=== PATIENT | female | born 1935 | race Caucasian/White ===

== ENCOUNTER 2017-11-27 11:43 | Inpatient (IN) | payer MEDICARE ==
--- NOTE | 2017-11-27 13:42 | CT ---
CT BRAIN WITHOUT CONTRAST: INDICATIONS: Altered mental status with nausea and dizziness since Saturday. The patient reportedly had a UTI and a n elevated white count and was started on Vancomycin. There was concern for supraventricular tachyca rdia at [facility]. The patient has had multiple falls recently. The patient reports fe eling drunk, walking from [id number], and dropping things with her hands. COMPARISON: None. FINDINGS: No definite acute infarct, hemorrhage, or hydrocephalus present. The septum pellucidum and third cony tricle are midline. The visualized skull and extracranial soft tissues are within normal limits. IMPRESSION: No acute intracranial abnormality. POS: [facility]
[2017-11-27] MEDS ORDERED: HYDROcodone/Acetaminophen 10/325 mg Tablet PO PRN (16:33)
[2017-11-27] MEDS ORDERED: Ondansetron ODT 4 MG TAB PO PRN (16:33)
[2017-11-27 16:58] LABS: CKMB 3.3 ng/mL (0-6.6); Troponin I Less than 0.010 ng/mL (< 0.028)
[2017-11-27] MEDS ORDERED: Sodium Chloride 0.9% 10 ML ONE (17:06)
[2017-11-27] MEDS: Ondansetron HCl/PF 4 MG/2 ML Vial IVP PRN (17:09)
[2017-11-27] MEDS: Sodium Chloride 0.9% 1,000 ML IV SCH (17:10)
[2017-11-27] MEDS: Cefepime 2 GM, Syringe 2.5 ML in Sodium Chloride 0.9% 10 ML SLOW IVP SCH (18:51)
[2017-11-27] MEDS ORDERED: Cefepime 2 GM in Sodium Chloride 0.9% 100 ML IVPB SCH (21:00)
[2017-11-27] MEDS: Famotidine/PF 20 mg/2ml Vial SLOW IVP SCH (22:08)
[2017-11-27] MEDS: Acetaminophen 325 MG TAB PO PRN (22:09)
[2017-11-28 00:53] LABS: CKMB 6.6 ng/mL (0-6.6); Troponin I 0.016 ng/mL (< 0.028)
[2017-11-28] MEDS: Sodium Chloride 0.9% 1,000 ML IV SCH ×2 (02:40→15:36)
[2017-11-28 05:46] LABS: ALT (SGPT) 23 U/L (8-55); AST (SGOT) 38 U/L (5-34); Albumin 2.9 g/dL (3.4-4.8); Alkaline Phosphatase 47 U/L (40-150); Anion Gap 18 mmol/L (10-20); BUN (Urea Nitrogen) 39 mg/dL (9.8-20.1); Calc. Creatinine Clearance 27 mL/min (70-130); Carbon Dioxide 17 mmol/L (23-31); Cardiac Risk 5.4 (Less than 4.5); Chloride 102 mmol/L (98-107); Cholesterol 65 mg/dl (< 200 Desired); Estimated GFR-MDRD 29; Globulin 2.8 g/dL (2.4-3.5); Glucose 91 mg/dL (83-110); HDL Cholesterol 12 mg/dL (>60 Neg Risk); LDL Cholesterol, Calculated 28 mg/dL; Magnesium 1.6 mg/dL (1.6-2.6); Potassium 3.8 mmol/L (3.5-5.1); Protein, Total 5.7 g/dL (6.0-8.3); Sodium 133 mmol/L (136-145); Triglycerides 126 mg/dL (Less than 150)
[2017-11-28 05:50] LABS: Band 39 % (5-11); Dohle Bodies SLIGHT; Hemoglobin 11.3 g/dL (12.0-16.0); Lymphocytes 7 % (21-51); MDiff Complete? YES; Mean Corpuscular HGB CONC 33.4 g/dL (32.0-36.0); Mean Corpuscular Hemoglobin 34.6 pg (27.0-31.0); Mean Platelet Volume 7.5 fL (7.4-10.4); Metamyelocyte 1 % (0-0); Monocytes 2 % (0-10); Neutrophil 51 % (42-75); PLT Morphology Comment Appears Decreased; Platelet Count 94 thou/uL (130-400); RBC Distribution Width 12.1 % (11.5-14.5); Red Blood Cell (RBC) Count 3.26 mill/uL (4.20-5.40); Vacuoles SLIGHT; White Blood Cell (WBC) Count 15.1 thou/uL (4.8-10.8)
[2017-11-28] MEDS: Cefepime 2 GM, Syringe 2.5 ML in Sodium Chloride 0.9% 10 ML SLOW IVP SCH (06:25)
[2017-11-28] MEDS ORDERED: Sodium Chloride 0.9% 1,000 ML IV SCH (07:45)
[2017-11-28] MEDS: Acetaminophen 325 MG TAB PO PRN ×2 (08:13→21:35)
[2017-11-28] MEDS: Famotidine/PF 20 mg/2ml Vial SLOW IVP SCH (08:13)
[2017-11-28] MEDS ORDERED: Gaviscon Tablet PO PRN (15:16)
[2017-11-28] MEDS: metroNIDAZOLE 500 MG in Premix Bag 1 BAG IVPB SCH ×2 (15:48→21:30)
[2017-11-28] MEDS: Cefepime 1 GM, Admixture Fee 1 EACH in Sodium Chloride 0.9% 10 ML SLOW IVP SCH (18:25)
--- NOTE | 2017-11-28 21:26 | PDOC.PN ---
- Subjective Encounter Start Date: 11/28/17 Encounter Start Time: 09:10 Pt feeling much better, no F/C until 100.5 around 0800. NO N/v, no CP, no SOB. Still with some dysuria, but improved. no D/C, good BM 11/27. Revisited alter and also diuscussed case on telephone with the son to keep him updated. planning to mobilize her. Orthostatic vitals done at 0430, BP stable, but HR recored was up from 80-90s to 110s, suspect its due to position change, bolus ordered to continue to volume resuscitate. lelia abx well, no itching or rashes [facility], positive for GNR in anaerobic bottle. 10 point ROS performed and neg for all systems except as above - Objective Resuscitation Status: Resuscitation Status FULL:Full Resuscitation MAR Reviewed: Yes Vital Signs & Weight: Vital Signs (12 hours) Temp Pulse Pulse Pulse Resp BP BP 11/28/17 17:00 98.7 F 84 16 11/28/17 11:10 73 75 95/52 L 96/55 L BP BP BP Pulse Ox Pulse Ox 11/28/17 17:00 116/60 136/59 L 127/62 11/28/17 11:10 95 95 Weight Admit Weight 148 lb Weight 158 lb 1 oz I&O: 11/27/17 11/28/17 11/29/17 06:59 06:59 06:59 Intake Total 420 3606 Output Total 500 Balance 420 3106 Result Diagrams: 11/28/17 04:37 11/28/17 04:37 Radiology Reviewed by me: Yes EKG Reviewed by me: Yes Phys Exam - Physical Examination Constitutional: NAD HEENT: PERRLA, moist MMs, sclera anicteric, oral pharynx no lesions Neck: no nodes, no JVD, supple, full ROM Respiratory: no wheezing, no rales, no rhonchi, clear to auscultation bilateral Cardiovascular: RRR, no significant murmur, no rub Gastrointestinal: soft, non-tender, positive bowel sounds distended and tympanitic Musculoskeletal: pulses present, edema present Neurological: non-focal, normal sensation, moves all 4 limbs Lymphatic: no nodes Psychiatric: normal affect, A&O x 3 Skin: no rash, normal turgor, cap refill <2 seconds Dx/Plan (1) Foodborne gastroenteritis Code(s): A05.9 - BACTERIAL FOODBORNE INTOXICATION, UNSPECIFIED Status: Acute Comment: inital symptoms, improved, then UTI symptoms. on Rx. Add Flagyl IV for anaerobic GNR coverage until more information form cultures available (2) UTI (urinary tract infection) Status: Acute Qualifiers: Urinary tract infection type: acute cystitis Hematuria presence: without hematuria Qualified Code(s): N30.00 - Acute cystitis without hematuria (3) Severe sepsis Code(s): A41.9 - SEPSIS, UNSPECIFIED ORGANISM; R65.20 - SEVERE SEPSIS WITHOUT SEPTIC SHOCK Status: Acute (4) Orthostasis Code(s): I95.1 - ORTHOSTATIC HYPOTENSION Status: Acute Comment: BP stable, but HR to 110. repeat in AM (5) Fall on same level as cause of accidental injury Code(s): W18.30XA - FALL ON SAME LEVEL, UNSPECIFIED, INITIAL ENCOUNTER Status : Acute (6) Paroxysmal SVT (supraventricular tachycardia) Code(s): I47.1 - SUPRAVENTRICULAR TACHYCARDIA Status: Acute Comment: likely more of a sinus tach related to dehydration. BBlocker on hold due to hypotension, will restrt likely tomorrow (7) Moderate dehydration Code(s): E86.0 - DEHYDRATION Status: Acute Comment: likely from decreased po intake, N/V/D. Cr up, BUN:Cr > 20:1. 2L additional bolus ordered this AM, continue to watch (8) YOLANDE (acute kidney injury) Code(s): N17.9 - ACUTE KIDNEY FAILURE, UNSPECIFIED Status: Acute Comment: Cr 1.79-1.68. conitnue to hydrate - Plan * .
[2017-11-28] MEDS: Diabetic Tussin 200 MG/10 ML UDCUP PO PRN (22:26)
[2017-11-29] MEDS: Sodium Chloride 0.9% 1,000 ML IV SCH (03:16)
[2017-11-29] MEDS: metroNIDAZOLE 500 MG in Premix Bag 1 BAG IVPB SCH ×3 (03:17→15:51)
[2017-11-29 05:35] LABS: Anion Gap 13 mmol/L (10-20); BUN (Urea Nitrogen) 37 mg/dL (9.8-20.1); Calc. Creatinine Clearance 32 mL/min (70-130); Calcium 7.7 mg/dL (7.8-10.44); Carbon Dioxide 19 mmol/L (23-31); Chloride 105 mmol/L (98-107); Estimated GFR-MDRD 33; Glucose 95 mg/dL (83-110); Magnesium 1.6 mg/dL (1.6-2.6); Potassium 3.3 mmol/L (3.5-5.1); Sodium 134 mmol/L (136-145)
[2017-11-29] MEDS: Cefepime 1 GM, Admixture Fee 1 EACH in Sodium Chloride 0.9% 10 ML SLOW IVP SCH ×2 (06:12→17:54)
[2017-11-29 06:16] LABS: Band 42 % (5-11); Hemoglobin 10.1 g/dL (12.0-16.0); Lymphocytes 7 % (21-51); MDiff Complete? YES; Macrocytosis SLIGHT = 6-15 cells (100X) (0-5/hpf); Mean Corpuscular HGB CONC 33.3 g/dL (32.0-36.0); Mean Corpuscular Hemoglobin 34.3 pg (27.0-31.0); Mean Platelet Volume 7.2 fL (7.4-10.4); Monocytes 3 % (0-10); Neutrophil 48 % (42-75); PLT Morphology Comment Appears Decreased; Platelet Count 103 thou/uL (130-400); RBC Distribution Width 12.3 % (11.5-14.5); Red Blood Cell (RBC) Count 2.93 mill/uL (4.20-5.40)
[2017-11-29] MEDS: Famotidine/PF 20 mg/2ml Vial SLOW IVP SCH (09:02)
[2017-11-29] MEDS: Acetaminophen 325 MG TAB PO PRN (09:07)
[2017-11-29] MEDS: Diabetic Tussin 200 MG/10 ML UDCUP PO PRN ×2 (09:16→21:17)
--- NOTE | 2017-11-29 16:50 | ULT ---
ULTRASOUND RENAL BILATERAL STANDARD: HISTORY: Acute kidney injury. Urinary tract infection. COMPARISON: None. FINDINGS: The right kidney measures 10.9 x 5 x 5.6 cm and the left kidney measures 13 x 7.1 x 6.5 cm. A small right renal cyst superior pole is present measuring up to 1.1 cm. Prevoid urinary bladder volume is 229 mL. Both ureteral jets were visualized. The patient is unable to get up and void. IMPRESSION: No evidence of obstructive uropathy. POS: [facility]
--- NOTE | 2017-11-29 20:31 | PDOC.PN ---
- Subjective Encounter Start Date: 11/29/17 Encounter Start Time: 11:00 Pt continues to feel better. tolerating IV antibiotics, tmax 100.2 last evening. no n/V/D/c, no CP or SOB. coughed all night, got cough medicine ordered and then cough stopped, never actually took anything for it,. Pt walking about 200' in the hallway with a walker. Case discussed with pt and her son, anticipating D/C in 1-2 days. Pt is complaining of pain in her left abdomen, radiating down to her left inguinal region. Cr slowly improving, HR down despite 10 sec episode of PSVT last evening \10 point ROS performed and neg for all systems except as per HPI - Objective Resuscitation Status: Resuscitation Status FULL:Full Resuscitation MAR Reviewed: Yes Vital Signs & Weight: Vital Signs (12 hours) Temp Pulse Pulse Pulse Resp BP BP 11/29/17 16:00 97.8 F 77 20 11/29/17 10:25 81 72 141/62 H 154/65 H 11/29/17 08:30 97.9 F 77 20 BP 11/29/17 16:00 153/69 H 11/29/17 10:25 11/29/17 08:30 153/70 H Weight Admit Weight 148 lb Weight 158 lb I&O: 11/28/17 11/29/17 11/30/17 06:59 06:59 06:59 Intake Total 420 5056 Output Total 800 Balance 420 4256 Result Diagrams: 11/29/17 04:36 11/29/17 04:36 Radiology Reviewed by me: Yes EKG Reviewed by me: Yes Phys Exam - Physical Examination Constitutional: NAD HEENT: PERRLA, moist MMs, sclera anicteric, oral pharynx no lesions Neck: no nodes, no JVD, supple, full ROM Respiratory: no wheezing, no rales, no rhonchi, clear to auscultation bilateral Cardiovascular: RRR, no significant murmur, no rub Gastrointestinal: soft, non-tender, no distention, positive bowel sounds Musculoskeletal: no edema, pulses present Neurological: non-focal, normal sensation, moves all 4 limbs Lymphatic: no nodes Psychiatric: normal affect, A&O x 3 Skin: no rash, normal turgor, cap refill <2 seconds Dx/Plan (1) Foodborne gastroenteritis Code(s): A05.9 - BACTERIAL FOODBORNE INTOXICATION, UNSPECIFIED Status: Acute Comment: inital symptoms, improved, then UTI symptoms. on Rx. Cx is identified as E coli, sdensitivites pending, will stop flagyl (2) UTI (urinary tract infection) Status: Acute Qualifiers: Urinary tract infection type: acute cystitis Hematuria presence: without hematuria Qualified Code(s): N30.00 - Acute cystitis without hematuria (3) Severe sepsis Code(s): A41.9 - SEPSIS, UNSPECIFIED ORGANISM; R65.20 - SEVERE SEPSIS WITHOUT SEPTIC SHOCK Status: Resolved (4) Orthostasis Code(s): I95.1 - ORTHOSTATIC HYPOTENSION Status: Acute Comment: BP stable, HR much improved. repeat in AM (5) Fall on same level as cause of accidental injury Code(s): W18.30XA - FALL ON SAME LEVEL, UNSPECIFIED, INITIAL ENCOUNTER Status : Resolved (6) Paroxysmal SVT (supraventricular tachycardia) Code(s): I47.1 - SUPRAVENTRICULAR TACHYCARDIA Status: Acute Comment: likely more of a sinus tach related to dehydration. BBlocker on hold due to hypotension, will restrt today (7) Moderate dehydration Code(s): E86.0 - DEHYDRATION Status: Acute Comment: likely from decreased po intake, N/V/D. Cr up, BUN:Cr > 20:1. 2L additional bolus ordered 11/28, continue to watch (8) YOLANDE (acute kidney injury) Code(s): N17.9 - ACUTE KIDNEY FAILURE, UNSPECIFIED Status: Acute Comment: Cr 1.79-1.68 to 1.5. check renal U/S - no evidence of stone. conitnue to hydrate - Plan cont current plan of care, plan discussed w/ family, continue antibiotics, PT/OT , respiratory therapy, out of bed/ambulate * .
[2017-11-29] MEDS ORDERED: Diltiazem HCl 125 MG, Admixture Fee 1 EACH in Sodium Chloride 0.9% 100 ML IVPB SCH (22:00)
[2017-11-29] MEDS ORDERED: Carvedilol 25 MG TAB PO SCH (23:45)
[2017-11-30] MEDS: Sodium Chloride 0.9% 1,000 ML IV SCH ×4 (01:04→23:07)
[2017-11-30] MEDS: Diabetic Tussin 200 MG/10 ML UDCUP PO PRN ×3 (04:11→20:46)
[2017-11-30] MEDS: Cefepime 1 GM, Admixture Fee 1 EACH in Sodium Chloride 0.9% 10 ML SLOW IVP SCH (05:40)
[2017-11-30 05:55] LABS: Anion Gap 13 mmol/L (10-20); BUN (Urea Nitrogen) 29 mg/dL (9.8-20.1); Calc. Creatinine Clearance 43 mL/min (70-130); Calcium 7.5 mg/dL (7.8-10.44); Carbon Dioxide 18 mmol/L (23-31); Chloride 106 mmol/L (98-107); Estimated GFR-MDRD 46; Glucose 99 mg/dL (83-110); Magnesium 1.7 mg/dL (1.6-2.6); Potassium 3.3 mmol/L (3.5-5.1); Sodium 134 mmol/L (136-145)
[2017-11-30 05:58] LABS: Band 13 % (5-11); Eosinophils 1 % (0-10); Hemoglobin 9.7 g/dL (12.0-16.0); Lymphocytes 1 % (21-51); MDiff Complete? YES; Mean Corpuscular HGB CONC 33.7 g/dL (32.0-36.0); Mean Corpuscular Hemoglobin 34.5 pg (27.0-31.0); Monocytes 14 % (0-10); Myelocyte 1 % (0-0); Neutrophil 70 % (42-75); Platelet Count 116 thou/uL (130-400); RBC Distribution Width 12.4 % (11.5-14.5); Red Blood Cell (RBC) Count 2.81 mill/uL (4.20-5.40); White Blood Cell (WBC) Count 10.5 thou/uL (4.8-10.8)
[2017-11-30] MEDS: Carvedilol 25 MG TAB PO SCH ×2 (10:22→20:45)
[2017-11-30] MEDS: Famotidine/PF 20 mg/2ml Vial SLOW IVP SCH (10:23)
--- NOTE | 2017-11-30 16:46 | RAD ---
ABDOMEN ONE VIEW 11/30/17 HISTORY: Anorexia, abdominal pain. COMPARISON: None. FINDINGS: No dilated air filled loops of large or small bowel. Posterior spinal fusion hardware L3-L5 is presen t without hardware complication. Evaluation for free air is limited without upright exam. No abnormal calcifications projecting over the renal shadows. IMPRESSION: No acute abnormality. POS: [facility]
[2017-11-30] MEDS: Benzonatate 100 MG CAP PO PRN (17:05)
[2017-11-30] MEDS: Fluticasone Propionate Nasal Spray 16 gm Bottle NASAL SCH (17:06)
--- NOTE | 2017-11-30 19:00 | CON ---
DATE OF CONSULTATION: 11/30/2017 HISTORY: The patient is an 82-year-old woman who was admitted with weakness and dizziness. The patient was diagnosed with a urinary tract infection. She has been in the hospital and developed a rapid heart rate on telemetry monitoring. The patient denied having any palpitations. The patient has no known history of coronary artery disease. The patient denies having any chest discomfort,dyspnea or weakness. PAST MEDICAL HISTORY: 1. Hypertension. 2. Hypercholesterolemia. 3. History of allergies. PAST SURGICAL HISTORY: Knee surgery and back surgery. SOCIAL HISTORY: Nonsmoker. FAMILY HISTORY: No strong family history of heart disease. MEDICATIONS ON ADMISSION: Aspirin 81 daily, Lipitor 40 at bedtime, carvedilol 12.5 b.i.d., hydrochlorothiazide 50 daily, and K-Dur 10 mEq 2 tablets daily. ALLERGIES: CODEINE and TRAMADOL. PHYSICAL EXAMINATION: GENERAL: This is an ill-appearing woman who is coughing with a blood pressure of 112/56. NECK: Showed no jugular distention. LUNGS: Coarse breath sounds bilateral. HEART: Regular rate and rhythm, normal S1, S2. ABDOMEN: Distended. EXTREMITIES: Showed trace edema. LABORATORY: Sodium was 134, potassium 3.3, chloride 106, bicarbonate 18, BUN 29 , creatinine is 1.1. Troponin was 0.016. Her white blood cell count is 10.5, hemoglobin 9.7, hematocrit 28.8, her platelets are 116. Her EKG revealed normal sinus rhythm with a nonspecific ST abnormality, Q-waves suggestive of possible previous septal infarct. Telemetry monitoring SVT, rate of approximately 180. IMPRESSION: 1. Supraventricular tachycardia. 2. Hypertension. 3. Urinary tract infection. 4. Persistent coughing. 5. Macrocytic anemia. This patient presented with a urinary tract infection. Her hospital monitor revealed SVT. The patient's Coreg had been held when she had low blood pressure. We will follow this patient with you through her hospitalization. MELIZA
[2017-11-30] MEDS: Cefepime 2 GM, Syringe 2.5 ML in Sodium Chloride 0.9% 10 ML SLOW IVP SCH ×2 (20:02→20:03)
[2017-11-30] MEDS: HYDROcodone/Acetaminophen 5/325 mg Tablet PO PRN (20:53)
--- NOTE | 2017-11-30 20:55 | PDOC.PN ---
- Subjective Encounter Start Date: 11/30/17 Encounter Start Time: 11:50 - Objective Resuscitation Status: Resuscitation Status FULL:Full Resuscitation MAR Reviewed: Yes Vital Signs & Weight: Vital Signs (12 hours) Temp Pulse Resp BP BP Pulse Ox 11/30/17 16:00 97.1 F L 68 18 125/68 11/30/17 12:00 97.9 F 66 16 142/60 H 96 Weight Admit Weight 148 lb Weight 158 lb 8 oz I&O: 11/29/17 11/30/17 12/01/17 06:59 06:59 06:59 Intake Total 5056 2124 1898 Output Total 800 300 650 Balance 4256 1824 1248 Result Diagrams: 12/01/17 04:46 12/01/17 04:46 Radiology Reviewed by me: Yes EKG Reviewed by me: Yes Phys Exam - Physical Examination Constitutional: NAD HEENT: PERRLA, moist MMs, sclera anicteric, oral pharynx no lesions Neck: no nodes, no JVD, supple, full ROM Respiratory: no wheezing, no rales, no rhonchi, clear to auscultation bilateral Cardiovascular: RRR, no significant murmur, no rub Gastrointestinal: soft, non-tender, no distention, positive bowel sounds Musculoskeletal: no edema, pulses present Neurological: non-focal, normal sensation, moves all 4 limbs Lymphatic: no nodes Psychiatric: normal affect, A&O x 3 Skin: no rash, normal turgor, cap refill <2 seconds Dx/Plan (1) Foodborne gastroenteritis Code(s): A05.9 - BACTERIAL FOODBORNE INTOXICATION, UNSPECIFIED Status: Acute Comment: inital symptoms, improved, then UTI symptoms. on Rx. Cx is identified as E coli, sensitivites pending, will stop flagyl. to po levoflox to complete 14d. (2) UTI (urinary tract infection) Status: Acute Qualifiers: Urinary tract infection type: acute cystitis Hematuria presence: without hematuria Qualified Code(s): N30.00 - Acute cystitis without hematuria Comment: UA consistnet, + symptoms, [facility]x [facility]. (3) Severe sepsis Code(s): A41.9 - SEPSIS, UNSPECIFIED ORGANISM; R65.20 - SEVERE SEPSIS WITHOUT SEPTIC SHOCK Status: Resolved (4) Orthostasis Code(s): I95.1 - ORTHOSTATIC HYPOTENSION Status: Resolved Comment: BP stable , HR much improved. repeat in AM (5) Fall on same level as cause of accidental injury Code(s): W18.30XA - FALL ON SAME LEVEL, UNSPECIFIED, INITIAL ENCOUNTER Status : Resolved (6) Paroxysmal SVT (supraventricular tachycardia) Code(s): I47.1 - SUPRAVENTRICULAR TACHYCARDIA Status: Acute Comment: ordered Coreg to restart, but apparently defaulted to restart this morning. Pt developed sustaind SVT overnight, given STAT coreg then. Cardizem gtt ordered. HR in 70s, Coreg on board. will stop cardizem and watch. Will ask cardiology to comment (7) Moderate dehydration Code(s): E86.0 - DEHYDRATION Status: Acute Comment: Cr down to 1.13. watch (8) YOLANDE (acute kidney injury) Code(s): N17.9 - ACUTE KIDNEY FAILURE, UNSPECIFIED Status: Acute Comment: Cr 1.79-1.68 to 1.5 to 1.13. renal U/S - no evidence of stone. conitnue to hydrate - Plan cont current plan of care, plan discussed w/ family, continue antibiotics, PT/OT , out of bed/ambulate * .
[2017-12-01] MEDS: Diabetic Tussin 200 MG/10 ML UDCUP PO PRN ×2 (03:05→22:12)
[2017-12-01] MEDS: HYDROcodone/Acetaminophen 5/325 mg Tablet PO PRN (03:12)
[2017-12-01 05:32] LABS: Anion Gap 12 mmol/L (10-20); BUN (Urea Nitrogen) 27 mg/dL (9.8-20.1); Calc. Creatinine Clearance 51 mL/min (70-130); Calcium 7.6 mg/dL (7.8-10.44); Carbon Dioxide 18 mmol/L (23-31); Chloride 107 mmol/L (98-107); Estimated GFR-MDRD 56; Glucose 112 mg/dL (83-110); Magnesium 1.4 mg/dL (1.6-2.6); Potassium 3.1 mmol/L (3.5-5.1); Sodium 134 mmol/L (136-145)
[2017-12-01] MEDS ORDERED: Cefepime 1 GM, Admixture Fee 1 EACH in Sodium Chloride 0.9% 10 ML SLOW IVP SCH (06:00)
[2017-12-01 06:01] LABS: Band 24 % (5-11); Hemoglobin 9.3 g/dL (12.0-16.0); Lymphocytes 6 % (21-51); MDiff Complete? YES; Mean Corpuscular HGB CONC 32.3 g/dL (32.0-36.0); Mean Corpuscular Hemoglobin 33.1 pg (27.0-31.0); Monocytes 11 % (0-10); Neutrophil 59 % (42-75); Platelet Count 121 thou/uL (130-400); RBC Distribution Width 12.6 % (11.5-14.5); White Blood Cell (WBC) Count 13.5 thou/uL (4.8-10.8)
[2017-12-01] MEDS ORDERED: Magnesium 2 GM/NS 0.9% 100 ML 2 GM in Premix Bag 1 BAG IVPB SCH (08:45)
[2017-12-01] MEDS: Famotidine/PF 20 mg/2ml Vial SLOW IVP SCH (08:46)
[2017-12-01] MEDS: Sodium Chloride 0.9% 1,000 ML IV SCH ×4 (08:55→21:36)
[2017-12-01] MEDS ORDERED: Potassium Chloride 20 MEQ TAB PO SCH (09:00)
[2017-12-01] MEDS: Fluticasone Propionate Nasal Spray 16 gm Bottle NASAL SCH (11:47)
[2017-12-01] MEDS: Aspirin 81 mg Enteric Coated Tablet PO SCH (11:47)
[2017-12-01] MEDS: Carvedilol 25 MG TAB PO SCH ×2 (11:47→21:25)
[2017-12-01] MEDS: Potassium Chloride 20 MEQ TAB PO SCH ×3 (12:17→21:32)
--- NOTE | 2017-12-01 12:27 | PDOC.PN ---
- Subjective Encounter Start Date: 12/01/17 Encounter Start Time: 10:25 Pt had cough, took robitussing and tessalon, improved. pain overnight to her back, was given hydrocodone which she has told me she doesnt take ever because all opioids make her nauseated, then proceeded to get nauseated and thre up once this morning. no f/c, no D/C. refuse dmeds earlier, now getting to the point where she feels she can tolerate them. Labs reviewed Son brought in a list of abx pt has been on and off the last few YEARS, but pt never finished. most recent was doxy for UTI. no other events. feels weak, tired today - Objective Resuscitation Status: Resuscitation Status FULL:Full Resuscitation Vital Signs & Weight: Vital Signs (12 hours) Temp Pulse Resp BP BP Pulse Ox 12/01/17 08:08 97.5 F L 70 20 168/70 H 94 L 12/01/17 04:00 97.8 F 79 22 H 147/66 H 93 L Weight Admit Weight 148 lb Weight 158 lb 1 oz I&O: 11/30/17 12/01/17 12/02/17 06:59 06:59 06:59 Intake Total 2124 3598 Output Total 300 750 Balance 1824 2848 Result Diagrams: 12/01/17 04:46 12/01/17 04:46 Radiology Reviewed by me: Yes EKG Reviewed by me: Yes Phys Exam - Physical Examination Constitutional: NAD acutely ill-appearing HEENT: PERRLA, moist MMs, sclera anicteric, oral pharynx no lesions Neck: no nodes, no JVD, supple, full ROM Respiratory: no wheezing, no rales, no rhonchi, clear to auscultation bilateral Cardiovascular: RRR, no significant murmur, no rub Gastrointestinal: soft, non-tender, positive bowel sounds slightly distended, no R/R/G Musculoskeletal: pulses present, edema present Neurological: non-focal, normal sensation, moves all 4 limbs Lymphatic: no nodes Psychiatric: normal affect, A&O x 3 Skin: no rash, normal turgor, cap refill <2 seconds Dx/Plan (1) Foodborne gastroenteritis Code(s): A05.9 - BACTERIAL FOODBORNE INTOXICATION, UNSPECIFIED Status: Acute Comment: inital symptoms, improved, then UTI symptoms. on Rx. Cx is identified as E coli, sensitivites reviewed. both BCx positive, no UCx sent (2) UTI (urinary tract infection) Status: Acute Qualifiers: Urinary tract infection type: acute cystitis Hematuria presence: without hematuria Qualified Code(s): N30.00 - Acute cystitis without hematuria Comment: UA consistnet, + symptoms, [facility]. to [facility] once daily now (3) Severe sepsis Code(s): A41.9 - SEPSIS, UNSPECIFIED ORGANISM; R65.20 - SEVERE SEPSIS WITHOUT SEPTIC SHOCK Status: Resolved (4) Orthostasis Code(s): I95.1 - ORTHOSTATIC HYPOTENSION Status: Resolved Comment: BP stable , HR much improved. repeat in AM (5) Fall on same level as cause of accidental injury Code(s): W18.30XA - FALL ON SAME LEVEL, UNSPECIFIED, INITIAL ENCOUNTER Status : Resolved (6) Paroxysmal SVT (supraventricular tachycardia) Code(s): I47.1 - SUPRAVENTRICULAR TACHYCARDIA Status: Acute Comment: ordered Coreg to restart, but apparently defaulted to restart this morning. Pt developed sustaind SVT overnight, given STAT coreg then. Cardizem gtt ordered. HR in 70s, Coreg on board. will stop cardizem and watch. HR remained in 70s. no PSVT episodes, cardiology content with current management. Echo reviwed (7) Moderate dehydration Code(s): E86.0 - DEHYDRATION Status: Acute Comment: Cr down to 0.95. watch (8) YOLANDE (acute kidney injury) Code(s): N17.9 - ACUTE KIDNEY FAILURE, UNSPECIFIED Status: Acute Comment: Cr 1.79-1.68 to 1.5 to 1.13 to 0.95. renal U/S - no evidence of stone. continue to hydrate until nausea resolved - Plan cont current plan of care, plan discussed w/ family, continue antibiotics, PT/OT , out of bed/ambulate * .
[2017-12-01] MEDS: hydrALAZINE 20 MG/ML VIAL SLOW IVP PRN (13:51)
[2017-12-01] MEDS: Benzonatate 100 MG CAP PO PRN (21:25)
[2017-12-02] MEDS: hydrALAZINE 20 MG/ML VIAL SLOW IVP PRN ×2 (00:31→21:45)
[2017-12-02] MEDS: Diabetic Tussin 200 MG/10 ML UDCUP PO PRN ×2 (02:19→05:43)
[2017-12-02 05:22] LABS: Anion Gap 12 mmol/L (10-20); BUN (Urea Nitrogen) 25 mg/dL (9.8-20.1); Calc. Creatinine Clearance 57 mL/min (70-130); Calcium 7.9 mg/dL (7.8-10.44); Carbon Dioxide 18 mmol/L (23-31); Chloride 108 mmol/L (98-107); Estimated GFR-MDRD 64; Glucose 117 mg/dL (83-110); Magnesium 1.8 mg/dL (1.6-2.6); Potassium 4.3 mmol/L (3.5-5.1); Sodium 134 mmol/L (136-145)
[2017-12-02 05:39] LABS: Band 3 % (5-11); Eosinophils 2 % (0-10); Hemoglobin 9.9 g/dL (12.0-16.0); Lymphocytes 7 % (21-51); MDiff Complete? YES; Mean Corpuscular HGB CONC 33.5 g/dL (32.0-36.0); Mean Corpuscular Hemoglobin 34.9 pg (27.0-31.0); Mean Platelet Volume 7.2 fL (7.4-10.4); Monocytes 10 % (0-10); Neutrophil 78 % (42-75); Platelet Count 153 thou/uL (130-400); RBC Distribution Width 12.8 % (11.5-14.5); Red Blood Cell (RBC) Count 2.82 mill/uL (4.20-5.40); White Blood Cell (WBC) Count 14.7 thou/uL (4.8-10.8)
[2017-12-02] MEDS ORDERED: Cepastat Lozenges 1 LOZ PO PRN (05:44)
[2017-12-02] MEDS ORDERED: cefTRIAXone\\ROCEPHIN 2 GM in Sodium Chloride 0.9% 100 ML IVPB SCH (06:00)
--- NOTE | 2017-12-02 08:36 | HP ---
DATE OF ADMISSION: 11/27/2017 TIME OF SERVICE: 1300 CHIEF COMPLAINT: Dizziness. HISTORY OF PRESENT ILLNESS: Ms. Giles is an 82-year-old white female with a history of hypertension , hyperlipidemia, osteoarthritis who presents in transfer to our ER from the [facility] for se psis and UTI. While she was there, she had an elevated heart rate in the 140s and a concern for SVT and has had multiple falls in the last several days. The last fall was the night before presenting, she started feeling like she was off balance and walking side to side and dropping things. She fell, hitting her head on a bookcase, but denies any loss of consciousness. Workup in the ER revealed an elevated white count 22.3, creatinine 1.79 which is above her baseline a nd she was subsequently transferred to our emergency department. On arrival here, blood pressure was borderline normal. We were called for admission. The patient denies any fevers or chills at present. She does feel odd, like she is off balance. She is having burning when she urinates. No nausea, vomiting, diarrhea, or constipation. At this time, she got antibiotics intravenously. On arrival here, she got a CT scan of the abdomen t hat was reportedly negative. Her CT scan of the brain was negative. The patient states that several days prior to admission, she developed a gastroenteritis-type diarrhe a for 3 days after eating taco salad with beans were cold. Immediately after which she started havin g dysuria and the disequilibrium started. PAST MEDICAL HISTORY: 1. Hypertension. 2. Hyperlipidemia. 3. Osteoarthritis. PAST SURGICAL HISTORY: 1. Appendectomy. 2. Hysterectomy. 3. Bilateral total knee replacements. 4. Ankle repair. 5. Right shoulder surgery and the lumbar fusion. HOME MEDICATIONS: 1. Atorvastatin 20/ezetimibe 10 mg p.o. at bedtime. 3. Premarin 1.25 mg p.o. daily. 4. KCl 20 mEq at bedtime. 5. Coreg 12.5 mg p.o. b.i.d. 6. HCTZ 50 mg p.o. q.a.m. 7. Aspirin 81 mg at bedtime. 8. Bactrim-DS q.p.m. for recurrent groin infection. 9. Centrum Silver daily. 10. Probiotic Citrucel daily. 11. B complex daily. 12. Magnesium citrate 400 mg p.o. daily. 13. Lutein 6 mg p.o. q.p.m. ALLERGIES: CODEINE AND TRAMADOL. Pretty much any narcotic causes nausea. FAMILY HISTORY: Negative for history of clotting or bleeding disorder, no immune dysfunction. SOCIAL HISTORY: Negative for habits x3. REVIEW OF SYSTEMS: A 10-point review of systems was performed, negative for all systems except as pe r HPI. PHYSICAL EXAMINATION: VITAL SIGNS: Temperature 98.3, pulse 81, blood pressure 106/46, respiratory rate 19, satting 97% on room air. GENERAL: She is awake. She is alert. She is in no acute distress. HEENT: Normocephalic, atraumatic. Pupils equal, round, react to light bilaterally. ENT: Mucous membranes moist. She has no visible lesion or thrush. NECK: Supple, without lymphadenopathy, JVD, thyromegaly. RESPIRATORY: Clear to auscultation bilaterally. She has no wheezing, no rales, no rhonchi. CARDIOVASCULAR: She is regular. She is slightly tachycardic, but while listening to it, slowed down to a normal rate. She does have a 2/6 holosystolic murmur heard at the apex. ABDOMEN: Soft. It is diffusely tender. There is no rebound, rigidity or guarding. She has hyperac tive bowel sounds present in all 4 quadrants. EXTREMITIES: No signs of clubbing with trace edema in the bilateral lower extremities. SKIN: Warm, moist, and well perfused. She has no rashes or lesions. NEUROLOGIC: Cranial nerves II-XII grossly intact with no focal deficits. MUSCULOSKELETAL: Normal to inspection. Joints appear normal. There is no inflammation. No palpabl e effusions. LABORATORY EVALUATION: Sodium 130, potassium 3.3, chloride 93, bicarbonate 24, BUN 33, creatinine 1. 79. Her baseline was 0.71. Glucose was normal at 151 and calcium of 8.2. Her albumin was 2.7. The rest of her liver function was within normal limits. CBC showed a white count of 22.3, 79% granuloc ytes, 8% bands, hemoglobin 11.0, hematocrit 32.8, and platelet count is 127,000. RADIOGRAPHIC STUDIES: CT scan of the brain is negative for acute intracranial abnormality. Chest x- ray showed no acute cardiopulmonary disease. Urinalysis 1+, leuk esterase, 2050 white cells, 3+ bacteria, positive nitrite. CK was 185, troponin I 0.03. ASSESSMENT AND PLAN: 1. Urinary tract infection. 2. Severe sepsis with bacterial infection, elevated white count with left shift, she had a low blood pressure and evidence of end organ damage with acute kidney injury. 3. Acute kidney injury. Creatinine is up above two and half times normal. I think she is dry. We will continue IV hydration. 4. Recent febrile illness. She will be covered with cefepime. 5. Hypertension: Hold blood pressure medicines, currently hypotensive. 6. Paroxysmal supraventricular tachycardia. Patient normally on a beta meg, but has not been on it for several days because of her food borne illness. Watch closely. I think if she gets rehydrat ed, her heart rate will come back down. 7. History of osteoarthritis. We will place the patient on IV antibiotics and IV fluids. Watch overnight. Repeat morning labs.
[2017-12-02] MEDS: Famotidine/PF 20 mg/2ml Vial SLOW IVP SCH (08:51)
[2017-12-02] MEDS: Ondansetron HCl/PF 4 MG/2 ML Vial IVP PRN (08:51)
[2017-12-02] MEDS: Carvedilol 25 MG TAB PO SCH ×2 (08:52→21:44)
[2017-12-02] MEDS: Aspirin 81 mg Enteric Coated Tablet PO SCH (08:52)
[2017-12-02] MEDS: Fluticasone Propionate Nasal Spray 16 gm Bottle NASAL SCH (08:52)
[2017-12-02] MEDS: Naproxen 500 MG TAB PO PRN ×2 (08:53→21:52)
--- NOTE | 2017-12-02 10:16 | PDOC.PN ---
- Subjective Encounter Start Date: 12/02/17 Encounter Start Time: 11:15 Subjective: Patient feeling a bit better today, except coughing all night and -: not able to sleep. A bit better with warm tea this AM. Trouble ambulating -: far. Thinks she may need rehab before home alone. - Objective Resuscitation Status: Resuscitation Status FULL:Full Resuscitation MAR Reviewed: Yes Vital Signs & Weight: Vital Signs (12 hours) Temp Pulse Resp BP BP Pulse Ox 12/02/17 08:00 80 20 188/81 H 98 12/02/17 06:00 166/78 H 12/02/17 04:00 98.3 F 89 22 H 92 L 12/02/17 00:31 88 189/84 H 12/02/17 00:00 181/76 H Weight Admit Weight 148 lb Weight 173 lb 14.4 oz I&O: 12/01/17 12/02/17 12/03/17 06:59 06:59 06:59 Intake Total 3598 2736 Output Total 750 800 Balance 2848 1936 Result Diagrams: 12/02/17 04:31 12/02/17 04:31 Phys Exam - Physical Examination Constitutional: NAD HEENT: moist MMs Respiratory: no wheezing, no rales, no rhonchi Cardiovascular: RRR, no significant murmur Gastrointestinal: soft, positive bowel sounds Musculoskeletal: edema present trace lower extremities Neurological: moves all 4 limbs Psychiatric: normal affect, A&O x 3 Dx/Plan (1) Severe sepsis Code(s): A41.9 - SEPSIS, UNSPECIFIED ORGANISM; R65.20 - SEVERE SEPSIS WITHOUT SEPTIC SHOCK Status: Resolved (2) YOLANDE (acute kidney injury) Code(s): N17.9 - ACUTE KIDNEY FAILURE, UNSPECIFIED Status: Resolved (3) UTI (urinary tract infection) Status: Acute Qualifiers: Urinary tract infection type: acute cystitis Hematuria presence: without hematuria Qualified Code(s): N30.00 - Acute cystitis without hematuria Comment: UA consistnet, + symptoms, no UCx [facility] at [facility] prior to transfer. to rocephin once daily now (4) Bacteremia Code(s): R78.81 - BACTEREMIA Status: Acute Comment: E. coli 2/2 cultures at [facility], on Rocephin, improving, likely urinary vs. GI source (5) Foodborne gastroenteritis Code(s): A05.9 - BACTERIAL FOODBORNE INTOXICATION, UNSPECIFIED Status: Acute Comment: inital symptoms, improved, then UTI symptoms. on Rx. Cx is identified as E coli, sensitivites reviewed. both BCx positive, no UCx sent (6) Moderate dehydration Code(s): E86.0 - DEHYDRATION Status: Resolved (7) Paroxysmal SVT (supraventricular tachycardia) Code(s): I47.1 - SUPRAVENTRICULAR TACHYCARDIA Status: Resolved Comment: ordered Coreg to restart, but apparently defaulted to restart this morning. Pt developed sustaind SVT overnight, given STAT coreg then. Cardizem gtt ordered. HR in 70s, Coreg on board. will stop cardizem and watch. HR remained in 70s. no PSVT episodes, cardiology content with current management. Echo reviwed - Plan cont current plan of care, continue antibiotics, PT/OT, DVT proph w/SCDs convert to oral abx and rehab eval -: CXR for worsened cough, appears allergic since cough since Aug, but worse -: with acute illness * . - Discharge Day Encounter end time: 11:25
[2017-12-02] MEDS: Sodium Chloride 0.9% 1,000 ML IV SCH (10:40)
[2017-12-02] MEDS ORDERED: Loratadine 10 MG TAB PO SCH (11:30)
[2017-12-02] MEDS: Albuterol Sulfate 2.5 mg/3 ml Neb NEB PRN ×2 (12:05→20:26)
--- NOTE | 2017-12-02 13:01 | PDOC.CTH ---
<Carmen Cervantes - Last Filed: 12/02/17 12:59> Cardiology Progress Note - Subjective The pt seen and examined. No overnight events. No cardiac complaints. She still feels very weak and concerns to d/c home by herself. - Objective Vital Signs Temp Pulse Resp BP BP BP BP 12/02/17 12:05 84 20 12/02/17 12:00 97.4 F L 65 20 162/69 H 12/02/17 10:13 124/57 L 125/58 L 106/52 L 12/02/17 08:00 98.3 F 80 20 188/81 H 12/02/17 06:00 166/78 H 12/02/17 04:00 98.3 F 89 22 H Pulse Ox 12/02/17 12:05 95 12/02/17 12:00 96 12/02/17 10:13 12/02/17 08:00 94 L 12/02/17 06:00 12/02/17 04:00 92 L Admit Weight 148 lb Weight 173 lb 14.4 oz 12/01/17 12/02/17 12/03/17 06:59 06:59 06:59 Intake Total 3598 2736 Output Total 750 800 Balance 2848 1936 - Physical Examination General/Neuro: alert & oriented x3 Neck: no JVD present Lungs: CTA (diminihsed at bases) Heart: RRR Abdomen: soft Extremities: other: (2+ pitting BLE edema) - Telemetry Telemetry Rhythm: SR 60s - Labs Result Diagrams: 12/02/17 04:31 12/02/17 04:31 Troponin/CKMB CK-MB (CK-2) 6.6 ng/mL (0-6.6) 11/28/17 00:23 Troponin I 0.016 ng/mL (< 0.028) 11/28/17 00:23 - Assessment/Plan 1. Paroxysmal SVT - Well controlled HR with Coreg 12.5mg 1 tab BID. Cont. to monitor on tele 2. UTI - on IV antibiotics; managed by PCP 3. HTN - stable with current medication; cont. to monitor 4. Hyperlipidemia - On statin 5. Anemia - Hgb 9.9 today from 9.3 yesterday. MAR reviewed Review of Systems - Review of Systems Constitutional: reports: weakness EENTM: reports: no symptoms reported Respiratory: reports: no symptoms reported Cardiac (ROS): reports: no symptoms reported ABD/GI: reports: no symptoms reported : reports: no symptoms reported Musculoskeletal: reports: see HPI <Kinjal Petersonan - Last Filed: 12/02/17 17:50> Cardiology Progress Note - Objective Vital Signs Temp Pulse Pulse Pulse Resp BP BP 12/02/17 16:00 97.5 F L 80 20 12/02/17 14:45 72 70 177/74 H 179/79 H 12/02/17 12:05 84 20 12/02/17 12:00 97.4 F L 65 20 12/02/17 10:13 12/02/17 08:00 98.3 F 80 20 12/02/17 06:00 BP BP BP BP Pulse Ox 12/02/17 16:00 182/77 H 12/02/17 14:45 12/02/17 12:05 95 12/02/17 12:00 162/69 H 96 12/02/17 10:13 124/57 L 125/58 L 106/52 L 12/02/17 08:00 188/81 H 94 L 12/02/17 06:00 166/78 H Admit Weight 148 lb Weight 173 lb 14.4 oz 12/01/17 12/02/17 12/03/17 06:59 06:59 06:59 Intake Total 3598 2736 Output Total 750 800 Balance 2848 1936 - Labs Result Diagrams: 12/02/17 04:31 12/02/17 04:31 Troponin/CKMB CK-MB (CK-2) 6.6 ng/mL (0-6.6) 11/28/17 00:23 Troponin I 0.016 ng/mL (< 0.028) 11/28/17 00:23 - Assessment/Plan Pt. seen and eval. by me. She has increased coughing since admission. She is 10 liters + on the I/O's.IV fluids d/c'd today. 2+ LE Edema. I will add a low dose diuretic and see if the cough improves. She is volume overloaded. Otherwise I agree with the A/P by the [facility] [facility] [employer].
--- NOTE | 2017-12-02 15:35 | RAD ---
PORTABLE CHEST ONE VIEW: Date: 12-02-17 Time: 2:41 p.m. History: Cough. FINDINGS: There is suggestion of a small left pleural effusion with mild infiltrates and atelectatic changes at the left lung base. The heart size borderline. There are degenerative changes in the spine. Post op changes are seen in the right shoulder. POS: OFF
[2017-12-02] MEDS ORDERED: Potassium Chloride 10 MEQ TAB PO SCH (21:00)
[2017-12-02] MEDS ORDERED: Aspirin 81 mg Enteric Coated Tablet PO SCH (21:00)
[2017-12-02] MEDS ORDERED: Atorvastatin Calcium 20 MG TAB PO SCH (21:00)
[2017-12-02] MEDS: Cefdinir 300 MG CAP PO SCH (21:45)
[2017-12-02] MEDS: Benzonatate 100 MG CAP PO PRN (21:49)
[2017-12-02] MEDS ORDERED: guaiFENesin/DM ER PO SCH (22:45)
[2017-12-03] MEDS: Albuterol Sulfate 2.5 mg/3 ml Neb NEB PRN (00:50)
[2017-12-03 05:30] LABS: #Eosinphils 0.1 thou/uL (0.0-0.7); #Lymphocytes 1.3 thou/uL (1.20-3.40); #Monocytes 1.7 thou/uL (0.11-0.59); #Neutrophils 9.6 thou/uL (1.40-6.50); %Lymphocytes 10.5 % (21.0-51.0); %Monocytes 13.1 % (0.0-10.0); %Neutrophils 75.4 % (42.0-75.0); Hemoglobin 9.2 g/dL (12.0-16.0); Mean Corpuscular Hemoglobin 35.3 pg (27.0-31.0); Mean Platelet Volume 7.3 fL (7.4-10.4); Platelet Count 154 thou/uL (130-400); RBC Distribution Width 12.6 % (11.5-14.5); Red Blood Cell (RBC) Count 2.59 mill/uL (4.20-5.40); White Blood Cell (WBC) Count 12.8 thou/uL (4.8-10.8)
[2017-12-03 05:39] LABS: Anion Gap 9 mmol/L (10-20); BUN (Urea Nitrogen) 23 mg/dL (9.8-20.1); Calc. Creatinine Clearance 60 mL/min (70-130); Calcium 8.2 mg/dL (7.8-10.44); Carbon Dioxide 21 mmol/L (23-31); Chloride 111 mmol/L (98-107); Estimated GFR-MDRD 61; Glucose 96 mg/dL (83-110); Potassium 4.1 mmol/L (3.5-5.1); Sodium 137 mmol/L (136-145)
[2017-12-03] MEDS ORDERED: Multivitamin W/ Minerals 1 TAB PO SCH (09:00)
[2017-12-03] MEDS ORDERED: Hydrochlorothiazide 25 MG TAB PO SCH (09:00)
[2017-12-03] MEDS ORDERED: Cyanocobalamin (Vitamin B-12) 1,000 MCG TAB PO SCH (09:00)
[2017-12-03] MEDS ORDERED: guaiFENesin/DM ER PO SCH (09:00)
[2017-12-03] MEDS ORDERED: Fish Oil 1,000 MG CAP PO SCH (09:00)
[2017-12-03] MEDS ORDERED: Ubidecarenone 50 MG CAP PO SCH (09:00)
[2017-12-03] MEDS ORDERED: Loratadine 10 MG TAB PO SCH (09:00)
[2017-12-03] MEDS: Fluticasone Propionate Nasal Spray 16 gm Bottle NASAL SCH (09:20)
[2017-12-03] MEDS: Cefdinir 300 MG CAP PO SCH (09:21)
[2017-12-03] MEDS: Carvedilol 25 MG TAB PO SCH (09:24)
[2017-12-03] MEDS: Famotidine/PF 20 mg/2ml Vial SLOW IVP SCH (09:25)
--- NOTE | 2017-12-03 09:53 | PDOC.PN ---
- Subjective Encounter Start Date: 12/03/17 Encounter Start Time: 12:40 Subjective: Patient feeling much better this AM, cough much improved with -: Claritin. A bit constipated. - Objective Resuscitation Status: Resuscitation Status FULL:Full Resuscitation MAR Reviewed: Yes Vital Signs & Weight: Vital Signs (12 hours) Temp Pulse Resp BP BP Pulse Ox 12/03/17 04:00 98.4 F 77 20 142/64 H 95 12/03/17 00:50 94 L 12/03/17 00:00 88 20 164/72 H Weight Admit Weight 148 lb Weight 179 lb 3.2 oz I&O: 12/02/17 12/03/17 12/04/17 06:59 06:59 06:59 Intake Total 2736 480 Output Total 800 1025 Balance 1936 -545 Result Diagrams: 12/03/17 04:41 12/03/17 04:41 Radiology Reviewed by me: Yes (mild LLL effusion and infiltrate/atelectasis) Phys Exam - Physical Examination Constitutional: NAD HEENT: moist MMs Respiratory: no wheezing, no rales, no rhonchi, clear to auscultation bilateral Cardiovascular: RRR, no significant murmur Gastrointestinal: soft, non-tender, positive bowel sounds Neurological: non-focal, moves all 4 limbs Psychiatric: normal affect, A&O x 3 Dx/Plan (1) Severe sepsis Code(s): A41.9 - SEPSIS, UNSPECIFIED ORGANISM; R65.20 - SEVERE SEPSIS WITHOUT SEPTIC SHOCK Status: Resolved (2) YOLANDE (acute kidney injury) Code(s): N17.9 - ACUTE KIDNEY FAILURE, UNSPECIFIED Status: Resolved (3) UTI (urinary tract infection) Status: Acute Qualifiers: Urinary tract infection type: acute cystitis Hematuria presence: without hematuria Qualified Code(s): N30.00 - Acute cystitis without hematuria Comment: Review of records shows positive Urine culture with E. coli (4) Bacteremia Code(s): R78.81 - BACTEREMIA Status: Acute Comment: E. coli 2/2 blood cultures at [facility] and positive urine culture as well, on Rocephin, improving (5) Foodborne gastroenteritis Code(s): A05.9 - BACTERIAL FOODBORNE INTOXICATION, UNSPECIFIED Status: Acute Comment: inital symptoms, improved, then UTI symptoms. on Rx. Cx is identified as E coli, sensitivites reviewed. both BCx and UCx positive (6) Moderate dehydration Code(s): E86.0 - DEHYDRATION Status: Resolved (7) Paroxysmal SVT (supraventricular tachycardia) Code(s): I47.1 - SUPRAVENTRICULAR TACHYCARDIA Status: Resolved Comment: ordered Coreg to restart, but apparently defaulted to restart this morning. Pt developed sustaind SVT overnight, given STAT coreg then. Cardizem gtt ordered. HR in 70s, Coreg on board. will stop cardizem and watch. HR remained in 70s. no PSVT episodes, cardiology content with current management. Echo reviwed (8) Pneumonia Code(s): J18.9 - PNEUMONIA, UNSPECIFIED ORGANISM Status: Acute Qualifiers: Pneumonia type: due to Escherichia coli Laterality: left Lung location: lower lobe of lung Qualified Code(s): J15.5 - Pneumonia due to Escherichia coli Comment: mild on CXR, possibly atelectasis, on Cefdinir - Plan cont current plan of care, continue antibiotics, PT/OT transitioned to oral abx, will transfer to SNF when accepted, patient -: wants to go to [place] * . - Discharge Day Encounter end time: 13:12
[2017-12-03 12:43] VITALS: BMI 32.8
[2017-12-03] MEDS ORDERED: Bisacodyl 5 MG TAB PO PRN (13:25)
--- NOTE | 2017-12-03 13:30 | PDOC.CTH ---
Cardiology Progress Note - Subjective The pt seen and examined. No overnight events. No cardiac complaints. She denied wheezing or cough after she received Lasix and Claritin. She has not exercised today. - Objective Vital Signs Temp Pulse Resp BP BP BP Pulse Ox 12/03/17 08:00 97.9 F 76 16 178/73 H 148/67 H 96 12/03/17 04:00 98.4 F 77 20 142/64 H 95 Admit Weight 148 lb Weight 179 lb 3.2 oz 12/02/17 12/03/17 12/04/17 06:59 06:59 06:59 Intake Total 2736 480 Output Total 800 1025 Balance 1936 -545 - Physical Examination General/Neuro: alert & oriented x3 Neck: no JVD present Lungs: CTA Heart: RRR Abdomen: soft Extremities: other: (2+ pitting BLE edema) - Telemetry Telemetry Rhythm: SR 77 - Labs Result Diagrams: 12/03/17 04:41 12/03/17 04:41 Troponin/CKMB CK-MB (CK-2) 6.6 ng/mL (0-6.6) 11/28/17 00:23 Troponin I 0.016 ng/mL (< 0.028) 11/28/17 00:23 - Assessment/Plan 1. Paroxysmal SVT - Well controlled HR with Coreg 12.5mg 1 tab BID. Cont. to monitor on tele 2. UTI - on IV antibiotics; managed by PCP 3. HTN - stable with current medication; cont. to monitor 4. Hyperlipidemia - On statin 5. Anemia - Hgb 9.3 today from 9.9 yesterday. 6. Constipation - dulcolax 5mg 1-2 tabs daily PRN. MAR reviewed * The pt is stable to tx to the pt to medical floor/Rehab. * when the pt d/mike from Rehab, the pt will f/u with Dr Peterson' office within 2-4 wks. Review of Systems - Review of Systems Constitutional: reports: weakness EENTM: reports: no symptoms reported Respiratory: reports: no symptoms reported Cardiac (ROS): reports: no symptoms reported ABD/GI: reports: no symptoms reported : reports: no symptoms reported Musculoskeletal: reports: no symptoms reported
[2017-12-03 15:40] VITALS: TEMP 98.1
[2017-12-03 16:35] VITALS: BP 191/78
--- NOTE | 2017-12-04 03:50 | DIS ---
PRIMARY CARE PHYSICIAN: Chris Ashley MD REASON FOR ADMISSION: Urinary tract infection with sepsis. DISCHARGE DIAGNOSES: 1. Severe sepsis, resolved. 2. Acute kidney injury, resolved. 3. Urinary tract infection with Escherichia coli. 4. Bacteremia with Escherichia coli. 5. Foodborne gastroenteritis, resolved. 6. Moderate dehydration, resolved. 7. Paroxysmal supraventricular tachycardia, resolved. 8. Mild pneumonia versus atelectasis. PROCEDURES: 1. CT of the brain without contrast showed no acute intracranial abnormality. 2. Abdominal x-ray showing no acute intraabdominal abnormality. CONSULTATION: Cardiology, Dr. Mobley. SUMMARY OF HOSPITAL COURSE: This is an 82-year-old white female with a history of hypertension, hyperlipidemia, and arthritis who had been having elevated heart rate and multiple falls over the last several days along with some diarrhea followed by dysuria. She presented to the [facility] and was diagnosed with sepsis and UTI, and noted to have increased creatinine as well. She was placed on IV antibiotics. Reportedly had a CT scan of the abdomen that was negative there. The patient eventually grew up E. coli in her urine and blood stream, 2/2 cultures. This was sensitive to Rocephin. She was treated with IV fluids and antibiotics, had slow improvement during her hospitalization. She did develop a significant cough during her hospitalization as well and had a chest x-ray, which showed a possible mild infiltrate versus atelectasis in the left lower base. This was treated with loratadine and hot tea with improvement in the cough. The patient's leukocytosis stabilized. Her vital signs all stabilized. She initially had some SVT on the telemetry monitoring. Cardiology was consulted and she was initially put on a drip. Her SVT resolved to normal sinus rhythm and she was able to have the medication stopped. They did not return after treatment for sepsis. Her creatinine was initially elevated and that came down to normal with IV fluids. The patient was doing much better on the day of discharge; however, she was weak from the infection and is being sent to [facility] facility for rehabilitation. DISCHARGE MANAGEMENT: Discharged to [facility]. ACTIVITY: As tolerated. DIET: Healthy heart diet with Ensure t.i.d. with meals. THERAPY: Physical and occupational therapy. FOLLOWUP: Follow up with Dr. Chris Ashley in 7 days. DISCHARGE MEDICATIONS: 1. Omnicef 300 mg twice a day for another 3 days for a total of 10 days of antibiotics. 2. Albuterol sulfate as needed. 3. Tylenol as needed. 4. Tessalon Perles as needed. 5. Dulcolax as needed. 6. Cepastat lozenges as needed. 7. Colace twice a day. 8. Pepcid 20 mg daily. 9. Flonase 2 sprays in each nostril daily. 10. Claritin 10 mg daily. 11. Naproxen as needed. 12. Zofran as needed. 13. Mucinex DM 1 tablet twice a day. 14. Carvedilol 12.5 mg twice a day. 15. Premarin 1 tablet daily. 16. Atorvastatin 20 mg at night. 17. Potassium chloride one tablet daily. 18. Hydrochlorothiazide one tablet daily. 19. Aspirin 81 mg daily. 20. Centrum Silver 1 tablet daily. 21. Probiotic daily. 22. Lutein 6 mg daily. 23. Magnesium citrate 400 mg daily. 24. Super B-complex 150 mg daily. 25. Coenzyme Q10, 100 mg daily. 26. Vitamin C 500 mg daily. 27. Citrucel tablet, 1 tablet daily. 28. Fish oil 500 Softgel, 1 tablet daily. 29. Vitamin D3, 1000 units daily. 30. Vitamin B12, 3000 mcg daily. Arranging the details of this discharge took 32 minutes. MTDD
[2017-12-04] MEDS ORDERED: Famotidine 20 MG TAB PO SCH (09:00)
== END 2017-12-03 18:00 | DRG 871 ==
LOC: ERS 11:43 → 2NO 13:36
PROVIDERS: ADMIT Internal Medicine Infectious Disease; ATTEND Internal Medicine Infectious Disease
DX: A41.51 Sepsis due to Escherichia coli [E. coli] (principal); J18.9 Pneumonia, unspecified organism; N17.9 Acute kidney failure, unspecified; E87.70 Fluid overload, unspecified; E86.0 Dehydration; D53.9 Nutritional anemia, unspecified; A04.4 Other intestinal Escherichia coli infections; N30.00 Acute cystitis without hematuria; I47.1 Supraventricular tachycardia; J98.11 Atelectasis; R65.20 Severe sepsis without septic shock; I10 Essential (primary) hypertension; R29.6 Repeated falls; E78.00 Pure hypercholesterolemia, unspecified; K59.00 Constipation, unspecified; I95.1 Orthostatic hypotension
CPT/HCPCS: 36415; 70450; 71045; 74018; 76770; 80048; 80053; 80061; 82553; 83735; 84484; 85025; 93005; 94640; A4216; G8978-GP-CI; G8978-GP-CK; G8979-GP-CI; G8980-GP-CI; G8987-GO-CI; G8987-GO-CK; G8988-GO-CI; G8989-GO-CI; J0360; J0692; J0696; J2405; J3475; J7050; J7611; Q0162; S0028

== ENCOUNTER 2017-12-13 12:25 | Outpatient (CLI) | payer MEDICARE | END 2017-12-13 12:26 | disposition home or self-care (01) | LOC: BICRAD 12:25 | PROVIDERS: ATTEND Internal Medicine Cardiovascular Disease | DX: R05 Cough (principal) | CPT/HCPCS: 71046 ==

== ENCOUNTER 2019-06-10 16:11 | Emergency (ER) | payer MEDICARE ==
[2019-06-10] MEDS ORDERED: Ketorolac Tromethamine 30 MG/ML VIAL ONE (17:06)
[2019-06-10 17:10] LABS: #Basophils 0.1 thou/uL (0.0-0.2); #Eosinphils 0.3 thou/uL (0.0-0.7); #Lymphocytes 2.1 thou/uL (1.20-3.40); #Neutrophils 4.9 thou/uL (1.40-6.50); %Basophils 1.4 % (0.0-1.0); %Eosinophils 3.3 % (0.0-10.0); %Lymphocytes 24.7 % (21.0-51.0); %Monocytes 11.9 % (0.0-10.0); %Neutrophils 58.7 % (42.0-75.0); Hemoglobin 11.9 g/dL (12.0-16.0); Mean Corpuscular HGB CONC 33.6 g/dL (32.0-36.0); Mean Corpuscular Hemoglobin 33.3 pg (27.0-31.0); Mean Corpuscular Volume 98.8 fL (78.0-98.0); Mean Platelet Volume 7.2 fL (7.4-10.4); Platelet Count 139 thou/uL (130-400); RBC Distribution Width 12.1 % (11.5-14.5); Red Blood Cell (RBC) Count 3.57 mill/uL (4.20-5.40); White Blood Cell (WBC) Count 8.4 thou/uL (4.8-10.8)
--- NOTE | 2019-06-10 17:21 | CT ---
CT OF ABDOMEN AND PELVIS PERFORMED WITHOUT CONTRAST ENHANCEMENT: 06/10/19 HISTORY: Left lower quadrant pain and vomiting x1 week. The lung bases show some linear scar. The liver, spleen, pancreas and gallbladder regions appear unremarkable given the limitations of a no ncontrast study. The right and left adrenal glands and right and left kidneys are normal in size. Somewhat lobulated c ontour to the left kidney. There are no renal calculi. There is no signs of obstruction and I do not identify any ureteral calculi. There is no significant periaortic or mesenteric adenopathy. CT OF PELVIS PERFORMED WITHOUT CONTRAST ENHANCEMENT: I do not see any inflammatory process that would suggest diverticulitis. The appendix is difficult to visualize but I see no inflammatory change in this region. No free fluid. Review of osseous structures show postoperative changes of the spine. IMPRESSION: No acute changes of the abdomen or pelvis. POS: [facility]
[2019-06-10 17:25] LABS: ALT (SGPT) 15 U/L (8-55); AST (SGOT) 19 U/L (5-34); Albumin 3.9 g/dL (3.4-4.8); Alkaline Phosphatase 41 U/L (40-110); Anion Gap 16 mmol/L (10-20); BUN (Urea Nitrogen) 21 mg/dL (9.8-20.1); Bilirubin, Total 0.5 mg/dL (0.2-1.2); Calc. Creatinine Clearance 0 mL/min (70-130); Calcium 9.6 mg/dL (7.8-10.44); Carbon Dioxide 25 mmol/L (23-31); Chloride 102 mmol/L (98-107); Estimated GFR-MDRD 68; Globulin 3.2 g/dL (2.4-3.5); Glucose 98 mg/dL (83-110); Potassium 4.1 mmol/L (3.5-5.1); Protein, Total 7.1 g/dL (6.0-8.3); Sodium 139 mmol/L (136-145)
== END 2019-06-10 18:40 | disposition home or self-care (01) ==
LOC: SCSER 16:11
DX: S39.011A Strain of muscle, fascia and tendon of abdomen, initial encounter (principal); I10 Essential (primary) hypertension; E78.5 Hyperlipidemia, unspecified; M19.90 Unspecified osteoarthritis, unspecified site; W18.30XA Fall on same level, unspecified, initial encounter
CPT/HCPCS: 36415; 74176; 80053; 85025; 96372; J1885

== ENCOUNTER 2019-06-21 10:44 | Inpatient (IN) | payer MEDICARE ==
[2019-06-21 11:22] LABS: #Basophils 0.1 thou/uL (0.0-0.2); #Eosinphils 0.2 thou/uL (0.0-0.7); #Lymphocytes 1.5 thou/uL (1.20-3.40); #Monocytes 0.8 thou/uL (0.11-0.59); %Basophils 0.9 % (0.0-1.0); %Eosinophils 2.6 % (0.0-10.0); %Lymphocytes 23.3 % (21.0-51.0); %Neutrophils 61.2 % (42.0-75.0); Hemoglobin 12.2 g/dL (12.0-16.0); Mean Corpuscular HGB CONC 34.5 g/dL (32.0-36.0); Mean Corpuscular Hemoglobin 34.4 pg (27.0-31.0); Mean Corpuscular Volume 99.5 fL (78.0-98.0); Mean Platelet Volume 7.6 fL (7.4-10.4); Platelet Count 127 thou/uL (130-400); RBC Distribution Width 11.6 % (11.5-14.5); Red Blood Cell (RBC) Count 3.55 mill/uL (4.20-5.40); White Blood Cell (WBC) Count 6.6 thou/uL (4.8-10.8)
--- NOTE | 2019-06-21 11:24 | CT ---
CT head without contrast: Multiple axial tomograms obtained through the head without IV enhancement. INDICATIONS: Right upper extremity numbness COMPARISON: CT head 04/18/2019 FINDINGS: Ventricles have normal size and position. No evidence of intracranial mass, hemorrhage, edema, or infarct. Visualized sinuses and mastoids appear clear. Bony calvarium appears unremarkable. No interval change. IMPRESSION: No acute finding
--- NOTE | 2019-06-21 11:33 | RAD ---
ABDOMINAL SERIES WITH UPRIGHT CHEST AND 2 VIEW ABDOMEN: INDICATION: Abdominal pain. FINDINGS: Lungs appear clear on the upright chest. Abdominal films show scattered stool and gas throughout the colon. Small bowel gas pattern is unrema rkable. No free air under either hemidiaphragm. Degenerative and postoperative spine changes are no meghan. IMPRESSION: Unremarkable bowel gas pattern. POS: [facility]
[2019-06-21 11:42] LABS: ALT (SGPT) 15 U/L (8-55); AST (SGOT) 25 U/L (5-34); Alkaline Phosphatase 42 U/L (40-110); Anion Gap 15 mmol/L (10-20); BUN (Urea Nitrogen) 20 mg/dL (9.8-20.1); Bilirubin, Total 0.6 mg/dL (0.2-1.2); CK (CPK) 136 U/L (29-168); Calc. Creatinine Clearance 0 mL/min (70-130); Calcium 9.4 mg/dL (7.8-10.44); Carbon Dioxide 23 mmol/L (23-31); Chloride 103 mmol/L (98-107); Estimated GFR-MDRD 66; Globulin 3.3 g/dL (2.4-3.5); Glucose 97 mg/dL (83-110); Lipase 18 U/L (8-78); Potassium 4.7 mmol/L (3.5-5.1); Protein, Total 7.3 g/dL (6.0-8.3); Sodium 136 mmol/L (136-145)
[2019-06-21] MEDS ORDERED: Aspirin Chewable 81 MG TAB ONE (13:55)
[2019-06-21] MEDS ORDERED: Ondansetron PF 4 MG/2 ML Vial IVP PRN (16:36)
[2019-06-21] MEDS ORDERED: Ondansetron ODT 4 MG TAB SL PRN (16:36)
[2019-06-21 17:38] VITALS: BMI 29.2
[2019-06-22] MEDS ORDERED: Bisacodyl 5 MG TAB PO PRN (07:54)
[2019-06-22] MEDS ORDERED: Acetaminophen 325 MG TAB PO PRN (08:10)
[2019-06-22] MEDS ORDERED: Senokot S 8.6-50 MG TAB PO PRN (08:10)
[2019-06-22] MEDS ORDERED: cloNIDine 0.1 MG TAB PO PRN (08:13)
[2019-06-22] MEDS ORDERED: FLU VACC TS2019-20(65YR UP)/PF 180 MCG/0.5 ML SYRINGE IM ONE (09:00)
[2019-06-22] MEDS ORDERED: Carvedilol 6.25 MG TAB PO SCH (09:00)
[2019-06-22] MEDS ORDERED: MAGNESIUM CITRATE PO SCH (09:00)
[2019-06-22] MEDS ORDERED: ESTROGENS CONJUGATED PO SCH (09:00)
[2019-06-22] MEDS ORDERED: Non-Formulary Item 1 EACH (Carvedilol [Carvedilol] 1 TAB) PO SCH (09:00)
[2019-06-22 09:15] LABS: Anion Gap 14 mmol/L (10-20); BUN (Urea Nitrogen) 20 mg/dL (9.8-20.1); Calc. Creatinine Clearance 54 mL/min (70-130); Calcium 9.2 mg/dL (7.8-10.44); Carbon Dioxide 24 mmol/L (23-31); Chloride 103 mmol/L (98-107); Estimated GFR-MDRD 61; Glucose 99 mg/dL (83-110); Potassium 3.9 mmol/L (3.5-5.1); Sodium 137 mmol/L (136-145)
--- NOTE | 2019-06-22 09:23 | ULT ---
EXAM: Carotid ultrasound HISTORY: Falls and hypertension COMPARISON: None TECHNIQUE: Multiplanar grayscale and color Doppler images were obtained in a carotid ultrasound. Spec tral analysis of the Doppler waveforms were performed. FINDINGS: No significant plaque is visualized in either internal carotid artery. A small amount of intimal thic kening is seen in the right internal carotid artery. No significant plaque is seen in either common carotid artery. The Doppler waveforms are normal in the visualized vessels. Peak systolic velocity in the right internal carotid artery 22 cm/s. Peak systolic velocity in the right common carotid artery 57 cm/s. The right ICA/CCA ratio is 0.4. Peak systolic velocity in the left internal carotid artery 112 cm/s. Peak systolic velocity in the left common carotid artery 80 cm/s. The left ICA/CCA ratio is 1.4. Both vertebral arteries demonstrate antegrade flow without focal stenosis IMPRESSION: No evidence of hemodynamically significant stenosis.
[2019-06-22 09:36] LABS: Band 2 % (5-11); Hemoglobin 12.1 g/dL (12.0-16.0); Lymphocytes 26 % (21-51); MDiff Complete? YES; Mean Corpuscular HGB CONC 34.4 g/dL (32.0-36.0); Mean Platelet Volume 7.2 fL (7.4-10.4); Monocytes 13 % (0-10); Neutrophil 59 % (42-75); Platelet Count 118 thou/uL (130-400); Platelet Morphology Comment Appears Decreased; RBC Distribution Width 11.6 % (11.5-14.5); RBC Morphology Normal; Red Blood Cell (RBC) Count 3.57 mill/uL (4.20-5.40); White Blood Cell (WBC) Count 7.8 thou/uL (4.8-10.8)
[2019-06-22] MEDS: Ascorbic Acid 500 mg Chewable Tablet PO SCH ×2 (09:44→21:06)
[2019-06-22] MEDS: Famotidine 20 MG TAB PO SCH ×2 (09:45→21:06)
[2019-06-22] MEDS: Magnesium Oxide 400 MG TAB PO SCH (09:45)
[2019-06-22] MEDS: Enoxaparin Sodium 40 MG/0.4 ML SYRINGE SC SCH (09:58)
[2019-06-22] MEDS ORDERED: Sodium Chloride 0.9% 500 ML IV SCH (12:45)
--- NOTE | 2019-06-22 14:01 | HP ---
PRIMARY CARE PHYSICIAN: Chris Ashley MD AQUATICS COORDINATOR: Cheri Peterson MD CHIEF COMPLAINT: Intermittent numbness to her left side with frequent falls. HISTORY OF PRESENT ILLNESS: Ms. Giles is a very pleasant 83-year-old female, who came to the emergency room for evaluation of right arm tingling, numbness, which happened earlier in the day and it resolved by the time she got to the ER. The patient reports intermittent pain to her left hip from her previous fall. Reports weakness in her legs today and complains of some constipation x3 days. She reports with further evaluation that she has been falling quite a bit over the last couple months, describes those as mechanical falls, however, reports that she gets dizzy from time to time, but she was not dizzy at any time when she fell. Reports her son told her she had some slurred speech. Couple of weeks ago, she reports that she felt lightheaded after going to the grocery store. By the time she got out of the car, she said she was having trouble speaking. Reports that the patient has been seen in the clinic and has been diagnosed with high blood pressure. Reports was seen at [facility] for recent fall and pain to the left side, but scans and x-rays were normal there. She was brought in yesterday after it was found that her blood pressure was elevated and son was concerned she might be having a stroke when considering the elevated blood pressure, episodes of arm tingling and slurred speech and the increased falls. Reports that she is a and her passed 11 years ago and that [place] and is very busy and very active. She reports that she sees Dr. Peterson and is pretty sure she had an echocardiogram done in the last several months and reports that she was told that was normal. She was admitted to the stroke unit for further evaluation. REVIEW OF SYSTEMS: Reports generalized weakness. Reports multiple falls. Reports some mild left hip pain after a fall 2 weeks ago. Reports right arm numbness and tingling on Saturday, but that has since resolved. Reports recent history of similar with some dizziness, slurred speech that was a couple of weeks ago. All other systems are reviewed and are negative unless mentioned in HPI. PAST MEDICAL HISTORY: Pertinent for hyperlipidemia, hypertension, and osteoarthritis. PAST SURGICAL HISTORY: Appendectomy; hysterectomy; orthopedic surgery, bilateral knees, ankle, shoulder surgery; and has had lumbar spinal surgery. PSYCHIATRIC HISTORY: None. SOCIAL HISTORY: Denies any alcohol or drug or smoking history. ALLERGIES: TO CODEINE AND TRAMADOL. CURRENT MEDICATIONS: 1. Aspirin 325 mg p.o. once a day. 2. Atorvastatin 20 mg p.o. once a day. 3. Coreg 12.5 mg p.o. b.i.d. 4. Premarin 1.25 mg p.o. once a day. PHYSICAL EXAMINATION: VITAL SIGNS: Temperature is 97.8, pulse is 73, respirations are 20, pO2 sats are 96% on room air, and blood pressure 184/94. CONSTITUTIONAL: The patient appears nontoxic. She is alert and oriented to person, place, and time. HEENT: Head is atraumatic and normocephalic. Eyes; eyelids are normal to inspection. Pupils are equally round and reactive to light. ENT, mouth exam is normal. Mucous membranes are moist. NECK: Normal range of motion. Trachea is midline. RESPIRATORY: Chest, no findings of any respiratory distress. Breath sounds are clear. CARDIOVASCULAR: Heart, regular rate and rhythm. Heart sounds are normal. ABDOMEN: Nontender. Bowel sounds are heard. BACK: Normal inspection. Normal range of motion. No tenderness. EXTREMITIES: Upper extremity findings, normal range of motion. Motor strength is normal. Sensation intact. Radial pulses are normal. She has ecchymosis noted to bilateral forearms. Lower extremity, normal range of motion. Motor strength is normal. Sensation intact. Pedal pulses are normal. No edema is noted. NEURO: The patient is oriented to person, place, and time. Speech is normal. Cranial nerves 2 through 12 are grossly intact. There is no focal motor or sensory deficits. [id number] test is normal. SKIN: Warm, dry, and normal in color. PSYCH: Has a normal affect. IMAGING STUDIES: EKG in the emergency room shows a normal sinus rhythm, beats per minute 70. ST segments T-waves are normal, axis is normal. PERTINENT LABS: Platelet count 127, hemoglobin 12.2, and hematocrit is 35.3. Chemistry unremarkable. Liver enzymes are unremarkable. PLAN/ASSESSMENT: 1. MRI of the brain, carotid Dopplers ordered. The patient reports that she does have a followup appointment with Dr. Peterson within the next couple of weeks and reports that Dr. Peterson has done an echocardiogram in the last several months. We will consult Cardiology. During hospitalization, the patient has had several pauses, early ventricular beats and 2 systole rhythms and has remained asymptomatic, but we will appreciate their recommendations. We will ask OT/PT to consult and evaluate the patient. 2. Constipation. MiraLAX b.i.d. and Senokot p.r.n. b.i.d. as needed. 3. Hypertension. Restart the Coreg. Add clonidine as needed for systolic blood pressure over 180. 4. Hyperlipidemia. Restart the atorvastatin. 5. Gastrointestinal and deep venous thrombosis prophylaxis has been started. 6. Hospital course dependent on clinical findings. Job ID: [id number]
--- NOTE | 2019-06-22 15:38 | MRI ---
MRI BRAIN WITHOUT CONTRAST: INDICATIONS: Hypertension and dizziness. COMPARISON: Reference made to head CT from the previous day. FINDINGS: There is no acute territorial infarction, intracranial mass effect or midline shift. Mild prominence of the ventricular system related to parenchymal volume loss is stable. No parenchymal hemorrhagic lovell sceptibility. Mild chronic ischemic disease is present. IMPRESSION: No acute territorial infarction or mass effect. Additional details are as described above. POS: [facility]
--- NOTE | 2019-06-22 18:21 | CON ---
DATE OF CONSULTATION: 06/22/2019 HISTORY OF PRESENT ILLNESS: The patient is a pleasant 83-year-old woman with a history of hypertension, who presented with dizziness. The patient was seen initially for preoperative evaluation. Nearly 8 years ago, she has been followed Dr. Peterson for hypertension. The patient was seen here in October 2017 with sepsis. She was noted to have supraventricular tachycardia. The patient was placed on Coreg. She was in her usual state of health. When apparently a couple pf months ago, she had a TIA. The patient was treated with aspirin. The patient presents with recurrent dizziness. She was noted to have an elevated blood pressure. She denied having any chest discomfort. PAST MEDICAL HISTORY: Significant for, 1. SVT. 2. Hypertension. 3. Dyslipidemia. 4. History of multiple allergies. PAST SURGICAL HISTORY: Knee surgery, back surgery, and shoulder surgery. ALLERGIES: SHE IS ALLERGIC TO CODEINE AND TRAMADOL. MEDICATIONS: Her medications on admission were; 1. Coreg 12.5 b.i.d. 2. Premarin 1.25 mg daily. 3. Aspirin 81 daily. 4. Lipitor 40 at bedtime. FAMILY HISTORY: No strong family history of heart disease. REVIEW OF SYSTEMS: Ten-point system otherwise unremarkable. PHYSICAL EXAMINATION: GENERAL AND VITAL SIGNS: This is an elderly woman, in no acute distress with a blood pressure of 181/72. NECK: Showed no jugular venous distention. LUNGS: Clear to auscultation. HEART: Regular rate and rhythm. Normal S1, S2. No murmurs. ABDOMEN: Nondistended. EXTREMITIES: Showed no edema. Vascular radial pulses are 2+. LABORATORY DATA: Her white blood cell count 7.8, hemoglobin 12.1, hematocrit 35.3, and platelets 118. Sodium is 137, potassium 3.9, chloride 103, bicarbonate 24, BUN 20, and creatinine 0.8. Her EKG reveals her to have normal sinus rhythm, normal ECG. Telemetry monitoring revealed prolonged pauses up to 3.3 seconds. IMPRESSION: 1. Sick sinus syndrome. 2. Dizziness, probably secondary to symptomatic bradycardia. 3. History of supraventricular tachycardia. 4. Hypertension, poorly controlled. 5. Dyslipidemia. The patient presents with dizziness. I suspect she is having prolonged pauses. She will need to be taken off Coreg. She presented with markedly elevated blood pressure. We would recommend using nifedipine to control her blood pressure. I would avoid beta blockers and clonidine. We will follow this patient with you throughout her hospitalization. Please call my office. Job ID: [id number]
[2019-06-22] MEDS ORDERED: Atorvastatin Calcium 20 MG TAB PO SCH (21:00)
[2019-06-22] MEDS ORDERED: Aspirin 81 mg Enteric Coated Tablet PO SCH (21:00)
[2019-06-22] MEDS: Aspirin 325 mg Enteric Coated Tablet PO SCH (21:06)
[2019-06-22] MEDS: NIFEdipine XL 30 MG TAB PO SCH (21:06)
[2019-06-22] MEDS: Atorvastatin Calcium 10 MG TAB PO SCH (21:06)
[2019-06-22] MEDS: Polyethylene Glycol 3350 17 GM Packet PO SCH (21:07)
[2019-06-22] MEDS ORDERED: hydrALAZINE 20 MG/ML VIAL SLOW IVP SCH (22:45)
[2019-06-23 06:13] LABS: Anion Gap 13 mmol/L (10-20); BUN (Urea Nitrogen) 19 mg/dL (9.8-20.1); Calc. Creatinine Clearance 60 mL/min (70-130); Carbon Dioxide 23 mmol/L (23-31); Chloride 103 mmol/L (98-107); Estimated GFR-MDRD 68; Glucose 104 mg/dL (83-110); Potassium 3.9 mmol/L (3.5-5.1); Sodium 135 mmol/L (136-145)
[2019-06-23 06:20] LABS: Eosinophils 1 % (0-10); Hemoglobin 12.2 g/dL (12.0-16.0); Lymphocytes 29 % (21-51); MDiff Complete? YES; Mean Corpuscular HGB CONC 34.8 g/dL (32.0-36.0); Mean Corpuscular Hemoglobin 34.4 pg (27.0-31.0); Mean Corpuscular Volume 98.8 fL (78.0-98.0); Mean Platelet Volume 7.4 fL (7.4-10.4); Monocytes 22 % (0-10); Neutrophil 48 % (42-75); Platelet Count 120 thou/uL (130-400); Platelet Morphology Comment Appears Decreased; RBC Distribution Width 11.6 % (11.5-14.5); Red Blood Cell (RBC) Count 3.54 mill/uL (4.20-5.40); White Blood Cell (WBC) Count 7.9 thou/uL (4.8-10.8)
[2019-06-23] MEDS: Polyethylene Glycol 3350 17 GM Packet PO SCH ×2 (09:19→20:46)
[2019-06-23] MEDS: Magnesium Oxide 400 MG TAB PO SCH (09:21)
[2019-06-23] MEDS: Enoxaparin Sodium 40 MG/0.4 ML SYRINGE SC SCH (09:21)
[2019-06-23] MEDS: Famotidine 20 MG TAB PO SCH ×2 (09:21→20:48)
[2019-06-23] MEDS: NIFEdipine XL 30 MG TAB PO SCH ×3 (09:21→20:47)
[2019-06-23] MEDS: Ascorbic Acid 500 mg Chewable Tablet PO SCH ×2 (09:22→20:47)
--- NOTE | 2019-06-23 09:38 | PDOC.CPN ---
- Subjective Date: 06/23/19 Time: 09:30 - Review of Systems Cardiovascular: reports: palpitation. denies: chest pain, paroxysmal nocturnal dyspnea, orthopnea Gastrointestinal: reports: vomiting, diarrhea, constipation, abd pain, GI bleeding. denies: nausea Musculoskeletal: reports: tenderness, swelling. denies: pain, stiffness, arthritis/arthralgias - Objective Allergies/Adverse Reactions: Allergies Allergy/AdvReac Type Severity Reaction Status Date / Time codeine Allergy Nausea Verified 11/27/17 16:33 tramadol Allergy Nausea Verified 11/27/17 16:33 Visit Medications: Current Medications Acetaminophen (Tylenol) 650 mg PO Q4H PRN PRN Reason: Headache/Fever/Mild Pain (1-3) Ascorbic Acid (Vitamin C) 500 mg PO BID [facility] Last Admin: 06/23/19 09:22 Dose: 500 mg Aspirin (Ecotrin) 325 mg PO QPM [facility] Last Admin: 06/22/19 21:06 Dose: 325 mg Atorvastatin Calcium (Lipitor) 10 mg PO HS [facility] Last Admin: 06/22/19 21:06 Dose: 10 mg Bisacodyl (Dulcolax) 10 mg PO DAILY PRN PRN Reason: Constipation Cholecalciferol (Vitamin D3) 1,000 units PO DAILY [facility] Last Admin: 06/23/19 09:22 Dose: 1,000 units Enoxaparin Sodium (Lovenox) 40 mg SC 0900 [facility] Last Admin: 06/23/19 09:21 Dose: Not Given Estrogens Conjugated (Premarin) 1.25 mg PO DAILY [facility] Last Admin: 06/23/19 09:22 Dose: 1.25 mg Famotidine (Pepcid) 20 mg PO BID [facility] Last Admin: 06/23/19 09:21 Dose: 20 mg Magnesium Oxide (Magnesium Oxide) 400 mg PO DAILY [facility] Last Admin: 06/23/19 09:21 Dose: 400 mg Nifedipine (Procardia Xl) 30 mg PO BID [facility] Last Admin: 06/23/19 09:21 Dose: 30 mg Polyethylene Glycol (Miralax) 17 gm PO BID [facility] Last Admin: 06/23/19 09:19 Dose: 17 gm Senna/Docusate Sodium (Senokot S) 2 tab PO BID PRN PRN Reason: Constipation Sodium Chloride (Flush - Normal Saline) 10 ml IVF PRN PRN PRN Reason: Saline Flush Sodium Chloride (Flush - Normal Saline) 10 ml IVF Q12HR SARA Sodium Chloride (Flush - Normal Saline) 10 ml IVF PRN PRN PRN Reason: Saline Flush Vital Signs & Weight: Vital Signs Temp Pulse Resp BP BP BP Pulse Ox 06/23/19 09:21 72 160/73 H 06/23/19 07:58 97.6 F 72 18 160/73 H 96 06/23/19 04:25 146/54 H 06/23/19 03:26 97.6 F 77 16 188/77 H 97 06/22/19 23:37 71 18 169/71 H 95 06/22/19 23:10 62 192/96 H Admit Weight 159 lb 13.362 oz Weight 159 lb 13.362 oz - Quality Measures CV meds: Beta Luis: No (held due to bradycardia.) - Physical Exam General: alert & oriented x3 HEENT: normocephaly Neck: no JVD/HJR Cardiac: regular rhythm (occasiomal ectopy and pauses.), bradycardia Lungs: clear to auscultation Abdomen: unremarkable Extremities: no edema - Labs Result Diagrams: 06/23/19 05:17 06/23/19 05:17 Troponin/CKMB Troponin I 0.021 ng/mL (< 0.028) 06/21/19 11:08 - Assessment/Plan Assessment/Plan: 1. Sinus node dysfunction. Significant pauses. symptomatic bradycardia. Plan for pacemaker insertion this AM.Procedure and risks explained to pt and son to include: bleeding ,infection,pneumo/hemo thorax,tamponade. she agrees to proceed. 2. HTN. This can be better managed after pacemaker insertion. 3. Hx. TIA's.
[2019-06-23] MEDS ORDERED: CEFAZOLIN 1 GM VIAL ONE (09:41)
[2019-06-23] MEDS ORDERED: Gentamicin 80 MG/2 ML VIAL ONE (09:41)
[2019-06-23] MEDS ORDERED: Midazolam HCl 2 mg/2 ml Vial ONE (10:38)
[2019-06-23] MEDS ORDERED: Carvedilol 6.25 MG TAB PO SCH ×3 (12:45→17:00)
--- NOTE | 2019-06-23 13:03 | RAD ---
EXAM: Single view of the chest HISTORY: Cardiac pacemaker placement COMPARISON: 12/02/2017 FINDINGS: Single view of the chest shows a normal sized cardiomediastinal silhouette. A left subclav luis e pacemaker seen with its leads in the right atrium and ventricle. No pneumothorax is seen. There is no evidence of consolidation, mass, or pleural effusion. The bones are unremarkable. IMPRESSION: Status post pacemaker placement without evidence of complication.
--- NOTE | 2019-06-23 13:13 | PDOC.HOSPP ---
- Subjective Encounter Date: 06/23/19 Encounter Time: 13:09 Subjective: Ms. Giles was seen today in follow-up of symptomatic bradycardia. She is s/p pacemaker placement. She does not have any complaints. - Objective Vital Signs & Weight: Vital Signs (12 hours) Temp Pulse Resp BP BP BP Pulse Ox 06/23/19 11:45 97.9 F 60 18 184/72 H 99 06/23/19 09:21 72 160/73 H 06/23/19 09:12 96 06/23/19 07:58 97.6 F 72 18 160/73 H 96 06/23/19 04:25 146/54 H 06/23/19 03:26 97.6 F 77 16 188/77 H 97 Weight Admit Weight 159 lb 13.362 oz Weight 159 lb 13.362 oz I&O: 06/22/19 06/23/19 06/24/19 06:59 06:59 06:59 Intake Total 630 540 Balance 630 540 Result Diagrams: 06/23/19 05:17 06/23/19 05:17 Hospitalist ROS - Medication Medications: Active Medications Generic Name Dose Route Start Last Admin Trade Name Jarettq PRN Reason Stop Dose Admin Ascorbic Acid 500 mg 06/22/19 09:00 06/23/19 09:22 Vitamin C PO 500 mg BID SARA Administration Aspirin 325 mg 06/22/19 21:00 06/22/19 21:06 Ecotrin PO 325 mg QPM SARA Administration Atorvastatin Calcium 10 mg 06/22/19 21:00 06/22/19 21:06 Lipitor PO 10 mg HS SARA Administration Cholecalciferol 1,000 units 06/22/19 09:00 06/23/19 09:22 Vitamin D3 PO 1,000 units DAILY SARA Administration Enoxaparin Sodium 40 mg 06/22/19 09:00 06/23/19 09:21 Lovenox SC Not Given 09 SARA Estrogens Conjugated 1.25 mg 06/22/19 09:00 06/23/19 09:22 Premarin PO 1.25 mg DAILY SARA Administration Famotidine 20 mg 06/22/19 09:00 06/23/19 09:21 Pepcid PO 20 mg BID SARA Administration Magnesium Oxide 400 mg 06/22/19 09:00 06/23/19 09:21 Magnesium Oxide PO 400 mg DAILY [facility] Administration Nifedipine 30 mg 06/22/19 21:00 06/23/19 09:21 Procardia Xl PO 30 mg BID [facility]ARA Administration Polyethylene Glycol 17 gm 06/22/19 21:00 06/23/19 09:19 Miralax PO 17 gm BID SARA Administration - Exam Eye: PERRL, anicteric sclera Heart: RRR, no murmur, no gallops, no rubs, normal peripheral pulses Respiratory: CTAB, no wheezes, no rales, no ronchi, normal chest expansion Gastrointestinal: soft, non-tender, non-distended, normal bowel sounds, no palpable masses Extremities: no cyanosis, no edema Hosp A/P (1) Bradycardia Code(s): R00.1 - BRADYCARDIA, UNSPECIFIED Status: Acute - Plan * Symptomatic bradycardia- she is s/p dual chamber pacemaker placement * HTN- blood pressure is elevated- continue Nifedipine, and Carvediolol has been added * Will monitor overnight
[2019-06-23] MEDS ORDERED: Sodium Chloride 0.9% 250 ML IV SCH (15:15)
[2019-06-23] MEDS: Carvedilol 6.25 MG TAB PO SCH (17:58)
[2019-06-23] MEDS ORDERED: Iopamidol 370 76% 50 ML VIAL FS ONE (20:47)
[2019-06-23] MEDS: Atorvastatin Calcium 10 MG TAB PO SCH (20:47)
[2019-06-23] MEDS: Aspirin 325 mg Enteric Coated Tablet PO SCH (20:47)
--- NOTE | 2019-06-23 22:15 | CCL ---
DATE OR PROCEDURE: 06/23/19 INDICATIONS: This is An 83-year-old female with sinus node dysfunction, significant pauses, episodes of presyncope and one episode of syncope in the past. Due to the syncope. Due to significant pauses of more than 3 seconds, she was advised to undergo a pacemaker insertion. She was taken to the cardiac phlebotomist lab assistant whe re she underwent the procedure today. She also has significant bradycardia this morning while on the telemetry unit. She was taken to the cardiac phlebotomist lab assistant where she underwent the procedure today without complications or difficulties. A full dictated report is in the chart. She was implanted with a funmilayo l chamber pacemaker from [employer]. This was an Corrina S dual chamber MRI compatible device with two s crew-in leads. One in the atrium and one in the ventricle. The pacemaker was set with the upper rate of 120 and lower rate set at 60. There were no difficulties or complication encountered. She was giv en 2 mg of IV versed for conscious sedation and throughout the procedure she was monitored by an inde pendent observer for heart rate, blood pressure, and O2 saturations and remained stable. Sedation kaushik e was 1 hour. She also was given intravenous contrast for visualization of the left subclavian vein.
[2019-06-24] MEDS: Enoxaparin Sodium 40 MG/0.4 ML SYRINGE SC SCH (09:53)
[2019-06-24] MEDS: Polyethylene Glycol 3350 17 GM Packet PO SCH (09:53)
[2019-06-24] MEDS: Carvedilol 6.25 MG TAB PO SCH (09:53)
[2019-06-24] MEDS: Famotidine 20 MG TAB PO SCH (09:53)
[2019-06-24] MEDS: Ascorbic Acid 500 mg Chewable Tablet PO SCH (09:54)
[2019-06-24] MEDS: NIFEdipine XL 30 MG TAB PO SCH (09:54)
[2019-06-24] MEDS: Magnesium Oxide 400 MG TAB PO SCH (09:54)
[2019-06-24 11:52] VITALS: TEMP 97.2
--- NOTE | 2019-06-24 12:09 | PDOC.HOSPP ---
- Subjective Encounter Date: 06/24/19 Encounter Time: 12:07 Subjective: Ms. Giles was seen today in follow-up of bradycardia. She is s/p pacemaker placement. She does not have any complaints. - Objective Vital Signs & Weight: Vital Signs (12 hours) Temp Pulse Resp BP BP BP BP 06/24/19 11:51 97.2 F L 85 18 130/63 06/24/19 09:54 67 111/53 L 06/24/19 07:45 97.8 F 67 16 149/73 H 06/24/19 04:00 97.7 F 73 16 142/66 H Pulse Ox 06/24/19 11:51 95 06/24/19 09:54 06/24/19 07:45 95 06/24/19 04:00 97 Weight Admit Weight 159 lb 13.362 oz Weight 160 lb 8 oz I&O: 06/23/19 06/24/19 06/25/19 06:59 06:59 06:59 Intake Total 540 570 480 Balance 540 570 480 Result Diagrams: 06/23/19 05:17 06/23/19 05:17 Hospitalist ROS - Medication Medications: Active Medications Generic Name Dose Route Start Last Admin Trade Name Freq PRN Reason Stop Dose Admin Acetaminophen 650 mg 06/22/19 08:10 06/23/19 20:46 Tylenol PO 650 mg Q4H PRN Administration Headache/Fever/Mild Pain (1-3) Ascorbic Acid 500 mg 06/22/19 09:00 06/24/19 09:54 Vitamin C PO 500 mg BID SARA Administration Aspirin 325 mg 06/22/19 21:00 06/23/19 20:47 Ecotrin PO 325 mg QPM SARA Administration Atorvastatin Calcium 10 mg 06/22/19 21:00 06/23/19 20:47 Lipitor PO 10 mg HS SARA Administration Carvedilol 12.5 mg 06/23/19 17:00 06/24/19 09:53 Coreg PO 12.5 mg BID-WM [facility]ARA Administration Cholecalciferol 1,000 units 06/22/19 09:00 06/24/19 09:53 Vitamin D3 PO 1,000 units DAILY [facility] Administration Enoxaparin Sodium 40 mg 06/22/19 09:00 06/24/19 09:53 Lovenox SC 40 mg 0900 [facility] Administration Estrogens Conjugated 1.25 mg 06/22/19 09:00 06/24/19 09:53 Premarin PO 1.25 mg DAILY [facility] Administration Famotidine 20 mg 06/22/19 09:00 06/24/19 09:53 Pepcid PO 20 mg BID [facility] Administration Magnesium Oxide 400 mg 06/22/19 09:00 06/24/19 09:54 Magnesium Oxide PO 400 mg DAILY [facility] Administration Nifedipine 30 mg 06/22/19 21:00 06/24/19 09:54 Procardia Xl PO Not Given BID [facility]ARA Polyethylene Glycol 17 gm 06/22/19 21:00 06/24/19 09:53 Miralax PO 17 gm BID [facility] Administration Sodium Chloride 10 ml 06/23/19 21:00 06/24/19 09:54 Flush - Normal Saline IVF 10 ml Q12HR [facility]ARA Administration - Exam Eye: PERRL, anicteric sclera Heart: RRR, no murmur, no gallops, no rubs, normal peripheral pulses Respiratory: CTAB, no wheezes, no rales, no ronchi, normal chest expansion Gastrointestinal: soft, non-tender, non-distended, normal bowel sounds, no palpable masses Extremities: no cyanosis, no clubbing, no edema Hosp A/P (1) Bradycardia Code(s): R00.1 - BRADYCARDIA, UNSPECIFIED Status: Acute - Plan * Symptomatic bradycardia- she is s/p dual chamber pacemaker placement * HTN- blood pressure is better * Stable for discharge home
[2019-06-24 12:11] VITALS: BP 142/63
--- NOTE | 2019-06-24 12:33 | PDOC.CPN ---
- Subjective Date: 06/24/19 Time: 08:30 Interval history: The pt seen and examined. No overnight events. No cardiac complaints. - Objective Allergies/Adverse Reactions: Allergies Allergy/AdvReac Type Severity Reaction Status Date / Time codeine Allergy Nausea Verified 11/27/17 16:33 tramadol Allergy Nausea Verified 11/27/17 16:33 Visit Medications: Current Medications Acetaminophen (Tylenol) 650 mg PO Q4H PRN PRN Reason: Headache/Fever/Mild Pain (1-3) Last Admin: 06/23/19 20:46 Dose: 650 mg Ascorbic Acid (Vitamin C) 500 mg PO BID [facility] Last Admin: 06/24/19 09:54 Dose: 500 mg Aspirin (Ecotrin) 325 mg PO QPM [facility] Last Admin: 06/23/19 20:47 Dose: 325 mg Atorvastatin Calcium (Lipitor) 10 mg PO HS [facility] Last Admin: 06/23/19 20:47 Dose: 10 mg Bisacodyl (Dulcolax) 10 mg PO DAILY PRN PRN Reason: Constipation Carvedilol (Coreg) 12.5 mg PO BID[facility] Last Admin: 06/24/19 09:53 Dose: 12.5 mg Cholecalciferol (Vitamin D3) 1,000 units PO DAILY [facility] Last Admin: 06/24/19 09:53 Dose: 1,000 units Enoxaparin Sodium (Lovenox) 40 mg SC 0900 [facility] Last Admin: 06/24/19 09:53 Dose: 40 mg Estrogens Conjugated (Premarin) 1.25 mg PO DAILY [facility] Last Admin: 06/24/19 09:53 Dose: 1.25 mg Famotidine (Pepcid) 20 mg PO BID [facility] Last Admin: 06/24/19 09:53 Dose: 20 mg Magnesium Oxide (Magnesium Oxide) 400 mg PO DAILY [facility] Last Admin: 06/24/19 09:54 Dose: 400 mg Nifedipine (Procardia Xl) 30 mg PO BID [facility] Last Admin: 06/24/19 09:54 Dose: Not Given Polyethylene Glycol (Miralax) 17 gm PO BID [facility] Last Admin: 06/24/19 09:53 Dose: 17 gm Senna/Docusate Sodium (Senokot S) 2 tab PO BID PRN PRN Reason: Constipation Sodium Chloride (Flush - Normal Saline) 10 ml IVF PRN PRN PRN Reason: Saline Flush Sodium Chloride (Flush - Normal Saline) 10 ml IVF Q12HR [facility] Last Admin: 06/24/19 09:54 Dose: 10 ml Sodium Chloride (Flush - Normal Saline) 10 ml IVF PRN PRN PRN Reason: Saline Flush Vital Signs & Weight: Vital Signs Temp Pulse Pulse Resp BP BP BP 06/24/19 11:51 97.2 F L 85 18 06/24/19 11:17 84 142/63 H 118/61 06/24/19 09:54 67 111/53 L 06/24/19 07:45 97.8 F 67 16 06/24/19 04:00 97.7 F 73 16 BP BP BP Pulse Ox 06/24/19 11:51 130/63 95 06/24/19 11:17 06/24/19 09:54 06/24/19 07:45 149/73 H 95 06/24/19 04:00 142/66 H 97 Admit Weight 159 lb 13.362 oz Weight 160 lb 8 oz - Quality Measures CV meds: Beta Luis: No (held due to bradycardia.) - Physical Exam General: alert & oriented x3 HEENT: mucus membranes moist Neck: supple neck Cardiac: regular rate and rhythm, S1/S2 Lungs: clear to auscultation, decreased breath sounds Neuro: cranial nerve 2-12 intact Abdomen: unremarkable Skin: clear, other (hematoma around PM site without any swelling or drainage) Musculoskeletal: normal range of motion - Labs Result Diagrams: 06/23/19 05:17 06/23/19 05:17 Troponin/CKMB Troponin I 0.021 ng/mL (< 0.028) 06/21/19 11:08 - Telemetry Sinus rhythms and dysrhythmias: sinus rhythm - Assessment/Plan Assessment/Plan: 1. Sinus node dysfunction. Significant pauses. symptomatic bradycardia with S/p PM placement: Remains in SR with A paced; 2. HTN - well managed by current med. 3. Hx. TIA's. MAR reviewed * From Cardiac complaints, the pt is stable to d/c home. * The pt will f/u with Dr Peterson' office in 10 days for hospital and s/p PM placement f/u. pt. seen and eval. by me. I agree with the A/p by the Design Sales Consultant. no complaints, the site loks good. CXR-no pneomo or hemothorax. Okay to d/c pt. to home. Stop Procardia.
--- NOTE | 2019-06-25 02:12 | DIS ---
DATE OF ADMISSION: 06/22/2019 DATE OF DISCHARGE: 06/24/2019 PRIMARY CARE PHYSICIAN: Chris Ashley MD DISCHARGE DISPOSITION: Home. PRIMARY DISCHARGE DIAGNOSES: 1. Symptomatic bradycardia. 2. Hypertension. 3. Hyperlipidemia. 4. Osteoarthritis. DISCHARGE MEDICATIONS: Include: 1. Carvedilol 12.5 mg twice daily. 2. Zofran 4 mg q.6 as needed. 3. Dulcolax 10 mg daily. 4. Vitamin C 150 mg daily. 5. CoQ10 of 100 mg daily. 6. Potassium chloride 10 mEq q.p.m. 7. Aleve 220 mg t.i.d. 8. Multivitamin once daily. 9. Magnesium citrate 400 mg daily. 10. Flonase daily as needed. 11. Vitamin D3 of 1000 units daily. 12. Atorvastatin 10 mg at bedtime. 13. Aspirin 81 mg daily. PROCEDURES DONE DURING THE ADMISSION: The patient had an MRI of the brain, which was negative for acute intracranial abnormalities. The patient also had a carotid Doppler showed which was negative for any flow-limiting disease and the patient had the placement of dual-chamber pacemaker. CODE STATUS: Full code. ALLERGIES: CODEINE AND TRAMADOL. HOSPITAL COURSE: Ms. Giles is a pleasant 83-year-old female, who was admitted to the hospital with severe dizziness and weakness, which was thought to be TIA in origin. She was admitted and had a carotid Doppler, which was negative as well as MRI. However, during the course of her admission, she was found to be bradycardic. Cardiology was consulted. She was initially taken off her beta blockers to see if this was the culprit. However, she continued to show significantly low heart rate and as a result, she underwent a pacemaker placement. She tolerated the procedure well and was able to be discharged home the following day. Job ID: [id number]
== END 2019-06-24 15:35 | disposition home or self-care (01) | DRG 244 ==
LOC: ERS 10:44 → ERHOLD 13:58 → 2SE 16:31 → OBSVTOIN 06-22 14:44
PROVIDERS: ADMIT Internal Medicine; ATTEND Internal Medicine
PROC: 0JH606Z Insertion of Pacemaker, Dual Chamber into Chest Subcutaneous Tissue and Fascia, Open Approach (ICD-10-PCS; principal; 2019-06-23)
PROC: 02HK3JZ Insertion of Pacemaker Lead into Right Ventricle, Percutaneous Approach (ICD-10-PCS; 2019-06-23)
PROC: 02H63JZ Insertion of Pacemaker Lead into Right Atrium, Percutaneous Approach (ICD-10-PCS; 2019-06-23)
DX: I49.5 Sick sinus syndrome (principal); R00.1 Bradycardia, unspecified; I10 Essential (primary) hypertension; E78.5 Hyperlipidemia, unspecified; M19.90 Unspecified osteoarthritis, unspecified site; R29.6 Repeated falls; K59.00 Constipation, unspecified; Z88.5 Allergy status to narcotic agent; Z86.73 Personal history of transient ischemic attack (TIA), and cerebral infarction without residual deficits
CPT/HCPCS: 33208; 36005; 36415; 70450; 70551; 71045; 74022; 75820; 80048; 80053; 80061; 82306; 82550; 83690; 84484; 85025; 90471; 90662; 93005; 93798; 93880; 96374; 99152; 99153; C1785; C1898; G0008; J0360; J0690; J1580; J1650; J2250; Q9967

== ENCOUNTER 2021-10-02 12:12 | Outpatient (CLI) | payer MEDICARE | END 2021-10-02 12:13 | disposition home or self-care (01) | LOC: BICRAD 12:12 | PROVIDERS: ATTEND Podiatrist | DX: L89.90 Pressure ulcer of unspecified site, unspecified stage (principal); R60.0 Localized edema; L08.9 Local infection of the skin and subcutaneous tissue, unspecified ==

== ENCOUNTER 2022-02-27 15:31 | Inpatient (IN) | payer MEDICARE ==
[2022-02-27 21:20] VITALS: BMI 29.5
[2022-02-28] MEDS: Losartan 25 MG TAB PO SCH (09:19)
[2022-02-28] MEDS: Carvedilol 6.25 MG TAB PO SCH ×2 (09:19→20:54)
[2022-02-28] MEDS ORDERED: Iopamidol-370 76% 500 ML 1 ML ONE (11:07)
[2022-02-28] MEDS: Aspirin 81 mg Enteric Coated Tablet PO SCH (11:15)
[2022-02-28] MEDS: Enoxaparin Sodium 40 MG/0.4 ML SYRINGE SC SCH (11:15)
[2022-02-28] MEDS ORDERED: Atorvastatin Calcium 40 MG TAB PO SCH (21:00)
[2022-02-28 23:21] LABS: Hemoglobin A1c 5.6 % (4.0-6.0)
[2022-03-01 05:40] LABS: Anion Gap 12 mmol/L (10-20); BUN (Urea Nitrogen) 18 mg/dL (9.8-20.1); Calc. Creatinine Clearance 53 mL/min (70-130); Calcium 9.2 mg/dL (7.8-10.44); Carbon Dioxide 26 mmol/L (23-31); Chloride 103 mmol/L (98-107); Estimated GFR 65; Glucose 99 mg/dL (83-110); Sodium 137 mmol/L (136-145)
[2022-03-01 06:23] LABS: Band 2 % (5-11); Eosinophils 4 % (0-10); Hemoglobin 11.6 g/dL (12.0-16.0); Lymphocytes 31 % (21-51); MDiff Complete? YES; Mean Corpuscular HGB CONC 32.2 g/dL (32.0-36.0); Mean Corpuscular Hemoglobin 32.8 pg (27.0-31.0); Mean Platelet Volume 7.7 fL (7.4-10.4); Monocytes 17 % (0-10); Neutrophil 46 % (42-75); Platelet Count 94 thou/uL (130-400); Platelet Morphology Comment Appears Decreased; RBC Distribution Width 11.6 % (11.5-14.5); Red Blood Cell (RBC) Count 3.54 mill/uL (4.20-5.40); White Blood Cell (WBC) Count 5.7 thou/uL (4.8-10.8)
[2022-03-01] MEDS: Carvedilol 6.25 MG TAB PO SCH (08:58)
[2022-03-01] MEDS: Aspirin 81 mg Enteric Coated Tablet PO SCH (08:58)
[2022-03-01] MEDS: Losartan 25 MG TAB PO SCH (08:58)
[2022-03-01] MEDS ORDERED: Clopidogrel Bisulfate 75 MG TAB PO SCH (09:00)
[2022-03-01] MEDS: Enoxaparin Sodium 40 MG/0.4 ML SYRINGE SC SCH (10:07)
[2022-03-01 12:13] VITALS: BP 121/55; TEMP 97.7
== END 2022-03-01 15:40 | disposition home or self-care (01) | DRG 68 ==
LOC: NEURO 15:31 → OBSVTOIN 02-28 10:48
PROVIDERS: ADMIT Family Medicine; ATTEND Hospitalist
DX: I65.02 Occlusion and stenosis of left vertebral artery (principal); R42 Dizziness and giddiness; I95.1 Orthostatic hypotension; I72.0 Aneurysm of carotid artery; E78.00 Pure hypercholesterolemia, unspecified; I10 Essential (primary) hypertension; I08.1 Rheumatic disorders of both mitral and tricuspid valves; E78.5 Hyperlipidemia, unspecified; I65.21 Occlusion and stenosis of right carotid artery; Z96.653 Presence of artificial knee joint, bilateral; Z88.5 Allergy status to narcotic agent; Z88.8 Allergy status to other drugs, medicaments and biological substances; Z79.82 Long term (current) use of aspirin; Z79.899 Other long term (current) drug therapy; Z98.890 Other specified postprocedural states; Z95.0 Presence of cardiac pacemaker; Z90.710 Acquired absence of both cervix and uterus; Z82.49 Family history of ischemic heart disease and other diseases of the circulatory system; Z98.42 Cataract extraction status, left eye; Z98.41 Cataract extraction status, right eye
CPT/HCPCS: 36415; 70496; 70498; 70551; 80048; 80061; 83036; 85025; 93306; J1650; Q9967